=== PATIENT | female | born 1995 | race Caucasian/White ===

== ENCOUNTER → 2017-11-18 17:50 | Outpatient (CLI) | payer OTHER, SELFPAY ==
[2017-11-18 20:30] LABS: Chlamydia Trachomatis by PCR Negative (Negative); Neisserai gonorrhoeae by PCR Negative (Negative); Probe Check PASS; Sample Adequacy Control PASS; Specimen Processing Control PASS
[2017-11-24 13:08] LABS: HPV Reflexed? NOT INDICATED
== END ==
PROVIDERS: Visit Provider Nurse Practitioner Women's Health
DX: Z34.80 Encounter for supervision of other normal pregnancy, unspecified trimester (principal); Z12.4 Encounter for screening for malignant neoplasm of cervix
CPT/HCPCS: 87086; 87088; 87491; 87591; 88175; G0145

== ENCOUNTER → 2017-12-16 14:58 | Outpatient (CLI) | payer OTHER, SELFPAY ==
[2017-12-16 17:18] LABS: Absolute Lymphocyte Count 1.68 X10^3/ul (0.83-4.51); Absolute Neutrophil Count 4.4 X10^3/uL (2.0-7.7); Basophil# 0.02 X10^3/uL; Basophil% 0.3 % (0-1); Eosinophil# 0.06 X10^3/uL; Eosinophils% 0.9 % (0-5); Hematocrit 35.1 % (37-47); Lymphocyte # 1.68 X10^3/ul (4.0); Lymphocyte % 25.1 % (19-41); Mean Corp Hgb Conc 34.2 g/gl (32-36); Mean Corpuscular Hgb 29.3 pg (27.0-32.0); Mean Corpuscular Volume 85.8 fL (81-99); Mean Platelet Vol. 12.9 fl (6.2-12.0); Monocyte# 0.47 X10^3/uL; Neutrophil # 4.44 X10^3/uL (2.7-7.7); Neutrophil % 66.6 % (47-70); Platelet Count 113 K/mm3 (150-450); RBC Distribution Width CV 13.4 % (11.6-14.6); RBC Distribution Width SD 41.6 fl (35.1-43.9); Red Blood Count 4.09 M/mm3 (4.2-5.4); White Blood Count 6.7 K/mm3 (4.4-11.0)
[2017-12-16 17:29] LABS: POSITIVE COUNT NO; POSITIVE DIFFERENTIAL NO; POSITIVE MORPHOLOGY NO
[2017-12-17 03:43] LABS: Rapid Plasmin Reagin (RPR) NONREACTIVE (NONREACTIVE)
[2017-12-17 12:31] LABS: HIV - WCH Non-Reactive (Nonreactive); Rubella IgG 112.9 IU/mL
[2017-12-18 09:09] LABS: HEPATITIS B SURFACE AG Negative (Negative)
== END ==
LOC: POLAB3 14:59
PROVIDERS: Visit Provider Nurse Practitioner Women's Health
DX: Z34.80 Encounter for supervision of other normal pregnancy, unspecified trimester (principal)
CPT/HCPCS: 85025; 86592; 86703; 86762; 86850; 86900; 87340

== ENCOUNTER → 2018-03-14 12:44 | Outpatient (CLI) | payer OTHER, SELFPAY ==
[2018-02-07 14:57] VITALS: BMI 21.4
[2018-03-14 13:14] LABS: Absolute Lymphocyte Count 1.89 X10^3/ul (0.83-4.51); Absolute Neutrophil Count 5.2 X10^3/uL (2.0-7.7); Basophil# 0.01 X10^3/uL; Basophil% 0.1 % (0-1); Eosinophil# 0.03 X10^3/uL; Eosinophils% 0.4 % (0-5); Hematocrit 34.5 % (37-47); Hemoglobin 11.2 g/dl (12.0-15.0); Lymphocyte # 1.89 X10^3/ul (4.0); Lymphocyte % 24.5 % (19-41); Mean Corp Hgb Conc 32.5 g/gl (32-36); Mean Corpuscular Hgb 28.6 pg (27.0-32.0); Mean Platelet Vol. 11.3 fl (6.2-12.0); Monocyte# 0.56 X10^3/uL; Monocyte% 7.3 % (0-10); Neutrophil % 67.3 % (47-70); POSITIVE COUNT NO; POSITIVE DIFFERENTIAL NO; POSITIVE MORPHOLOGY NO; Platelet Count 127 K/mm3 (150-450); RBC Distribution Width CV 12.3 % (11.6-14.6); Red Blood Count 3.92 M/mm3 (4.2-5.4); White Blood Count 7.7 K/mm3 (4.4-11.0)
--- OUTSIDE RECORDS SUMMARY | 2018-05-07 19:22 | XMS RPT_ITS ---
:1995 Author Organization OHIP Support Name Relationship Address Phone MARCHCOLTONDE Unavailable [address] + [place] [address] UE Unavailable Unavailable Unavailable GIOVANI LAMBERTO Unavailable [address] + [place] [address] UE Unavailable Unavailable Unavailable GIOVANI LAMBERTO Unavailable [address] + [place] [address] UE Unavailable Unavailable Unavailable GIOVANI LAMBERTO Unavailable [address] + [place] [address] UE Unavailable Unavailable Unavailable GIOVANI LAMBERTO Unavailable [address] + [place] [address] U Unavailable Unavailable Unavailable MARCH LAMBERTO Unavailable [address] + [place] [address] U Unavailable Unavailable Unavailable GIOVANI LAMBERTO Unavailable [address] + [place] [address] U Unavailable Unavailable Unavailable MARCH LAMBERTO Unavailable [address] + [place] [address] U Unavailable Unavailable Unavailable LAMBERTO MARCH Unavailable [address] + [place] [address] U Unavailable Unavailable Unavailable NOT EMPLOYED Unavailable Unavailable + [place] [address] COLTON MARCHDE Unavailable [address] + [place] [address] Care Team Providers Name Role Phone Nazario Cameron MD Admitting Unavailable Nazario Cameron MD Attending Unavailable KRAIG HER Attending Unavailable SELF, SELF Referring Unavailable KRAIG EHR Attending Unavailable SELF, SELF Referring Unavailable LESLIE SOFIA Attending Unavailable KRAIG HER Attending Unavailable SELF, SELF Referring Unavailable NO PRIMARY CAREMD Primary Care Unavailable AUGUSTA WILSON Attending Unavailable MARCANTHONY, ASHLEY E Referring Unavailable Marcanthony, Ashley Attending Unavailable Marcanthony, Ashley Attending Unavailable Marcanthony, Ashley Referring Unavailable Primay Care Physicia, No Primary Care Unavailable Noel, Kaycee Attending Unavailable Noel, Kaycee Attending Unavailable [place], Kaycee Referring Unavailable [place], Kaycee Attending Unavailable Noel, Kaycee Attending Unavailable Marcanthony, Ashley Attending Unavailable Marcanthony, Ashley Attending Unavailable Marcanthony, Ashley Attending Unavailable Marcanthony, Ashley Referring Unavailable Primay Care Physicia, No Primary Care Unavailable Marcanthony, Ashley Attending Unavailable PROBLEMS PROBLEMS DATE TYPE CONDITION / CODE ATTENDING STATUS SOURCE 03/28/2018 Unknown Z34.90 - Encounter Marcanthony, Active [place] for supervision of [facility] normal , Hospital unspecified, Repository unspecified trimester / Z34.90(ICD-10) 03/28/2018 Unknown Z23 - Encounter for Marcanthony, Active [place] immunization / [facility] Z23(ICD-10) Hospital Repository 03/28/2018 Unknown O23.591 - Infection Marcanthony, Active [place] of other part of [facility] genital tract in Hospital , first Repository trimester / O23.591(ICD-10) 03/28/2018 Unknown Z34.80 - Encounter Marcanthony, Active [place] for supervision of [facility] other normal Hospital , Repository unspecified trimester / Z34.80(ICD-10) 03/28/2018 Unknown Z3A.27 - 27 weeks Marcanthony, Active [place] gestation of [facility] / Hospital Z3A.27(ICD-10) Repository 03/28/2018 Unknown O99.119 - Other Marcanthony, Active [place] diseases of the [facility] blood and Hospital blood-forming organs Repository and certain disorders involving the immune mechanism complicating , unspecified trimester / O99.119(ICD-10) 03/28/2018 Unknown O43.113 - Marcanthony, Active [place] Circumvallate [facility] placenta, third Hospital trimester / Repository O43.113(ICD-10) 03/14/2018 Unknown Z3A.25 - 25 weeks Marcanthony, Active [place] gestation of [facility] / Hospital Z3A.25(ICD-10) Repository 02/07/2018 Unknown Z3A.20 - 20 weeks Marcanthony, Active [place] gestation of [facility] / Hospital Z3A.20(ICD-10) Repository 01/14/2018 Unknown Z3A.16 - 16 weeks Jorge Alberto, Active [place] gestation of [facility] / Hospital Z3A.16(ICD-10) Repository 12/22/2017 Admitting Anesthesia of saa / SOFIALESLIE KIRKPATRICK [facility] Diagnosis R20.0(ICD-10) System ([place]) Repository 12/22/2017 Admitting state, TAINA, [facility] Diagnosis incidental / KRAIG System ([place]) Z33.1(ICD-10) Repository 12/16/2017 Unknown O23.599 - Infection Noel, Active [place] of other part of [facility] genital tract in Hospital , Repository unspecified trimester / O23.599(ICD-10) 12/16/2017 Unknown A59.01 - Trichomonal Neol, Active [place] vulvovaginitis / [facility] A59.01(ICD-10) Hospital Repository 11/19/2017 Unknown Z12.4 - Encounter Noel, Active [place] for screening for [facility] malignant neoplasm Hospital of cervix / Repository Z12.4(ICD-10) 11/18/2017 Unknown A64 - Unspecified Noel, Active [place] sexually transmitted [facility] disease / Hospital A64(ICD-10) Repository 11/18/2017 Unknown N89.8 - Other Noel, Active [place] specified [facility] noninflammatory Hospital disorders of vagina Repository / N89.8(ICD-10) PROCEDURES PROCEDURES No Procedure Records FoundRESULTS RESULTS CBC W/DIFF, AUTOMATED Collected: 03/28/2018 Status: F Source: [place] 2:44 PM [facility] REPOSITORY TYPE CODE TESTS RESULT OUT OF RANGE REFERENCE UNITS LAB L100.1000 4.4-11.0 K/mm3 Normal WBC 7.0 LAB L100.1200 4.2-5.4 M/mm3 Low RBC 3.78 LAB L100.1300 12.0-15.0 g/dl Low HGB 10.6 LAB L100.1400 37-47 % Low HCT 32.1 LAB L100.1500 81-99 fL Normal MCV 84.9 LAB L100.1600 27.0-32.0 pg Normal MCH 28.0 LAB L100.1700 32-36 g/gl Normal MCHC 33.0 LAB L100.1810 11.6-14.6 % Normal RDW CV 12.6 LAB L100.1820 35.1-43.9 fl Normal RDW SD 39.0 LAB L100.1900 150-450 K/mm3 Low PLT 115 LAB L100.2000 6.2-12.0 fl Normal MPV 11.2 LAB L100.2100 47-70 % High NEUT% 72.2 LAB L100.2200 19-41 % Normal LY% 21.3 LAB L100.2300 0-10 % Normal MONO% 6.0 LAB L100.2400 0-5 % Normal EO% 0.1 LAB L100.2500 0-1 % Normal BASO% 0.1 LAB L100.2550 0.0-0.9 % Normal IM GRAN % 0.300 Result Comment: IG% - Immature Granulocytes (promyelocytes, myelocytes and metamyelocytes) > 1% indicates that a LEFT SHIFT is Present. LAB L100.2620 2.0-7.7 X10 3/uL Normal Absolute Neut 5.0 LAB L100.2720 0.83-4.51 X10 3/ul Normal Absolute Lymph 1.48 Performed By: #### L100.0100 #### [facility] [address] [place], [address] GLUCOSE CHALLENGE GEST Collected: 03/28/2018 Status: F Source: [place] 1H 50G 2:44 PM [facility] REPOSITORY Order Comment: Comments: blood draw at 2:55 Comments: blood draw at 2:55 TYPE CODE TESTS RESULT OUT OF RANGE REFERENCE UNITS LAB L501.0250 70-140 mg/dL Normal GLU GEST 114 50g 1H Performed By: #### L501.0250 #### [facility] [address] [place], [address] MANAGER PORT OFFICE VISIT Observed: 03/28/2018 Status: F Source: [place] REPORT 2:42 PM [facility] REPOSITORY [facility] [address] [place] [address] OFFICE VISIT Date of Service: 03/28/18 MR#: [id number] Acct: [id number] Name: MOLLY MARCH Rep #: [id number] : 1995 Provider: Ashley Azul MD Age/Sex: 23/F Location: [facility] Status: Signed with Addenda ADDENDUM by Megan Cohn on 03/28/18 at 1442 OFFICE PROCEDURES Office Procedure Documentation entered by Megan Cohn 03/28/18 14:42: Immunizations Boostrix Tdap Performing Provider: Ashley Azul MD Administered by: Megan Cohn on 03/28/18 14:40 Dose Route Admin Location Lot Number Expiration Date NDC Hcc Coders 0.5 mL IM Left Arm (SQ) [id number] 02/04/20 44984-010-09 [employer] VIS Given Date VIS Publication Date 03/28/18 06/05/14 Eligibility Eligibility Date 03/28/18 1442 <Electronically signed by Megan Cohn > Date Megan Cohn cc: * Signed Intake Vital Signs03/28/18 Body Mass Index (BMI) 21.4 03/28/18 Height 5 ft 2 in 03/28/18 Weight: 118 lb 4 oz 03/28/18 Body Mass Index (BMI) 21.6 03/28/18 Blood Pressure 118/78 Intake Visit Reasons: 27 weeks Major General Required: No Is patient in pain?: No Allergies Penicillins Allergy (Intermediate, Verified 03/28/18 14:05) rash Medications docosahexanoic acid 200 mg capsule mg PO 12/16/17 [History Confirmed 03/28/18] hydroxyzine pamoate 50 mg capsule 50 mg PO TID-QID PRN #30 cap 01/20/18 [Rx Confirmed 03/28/18] Last Menstral Period: 09/19/17 Zika: Zika virus screening: Negative : No PFSH PFSH Medical History Gestational thrombocytopenia (Acute) Surgical History History of placement of ear tubes (Acute) Family History Grandfather Breast cancer Social History number of children: 1 current occupational status: unemployed Smoking Status: Never smoker alcohol intake: never substance use type: does not use caffeine: Yes Type: carbonated beverages Number of servings: 2 what type of physical activity do you participate in: none seatbelt use: always do you feel safe at home: Yes additional social history: Lamberto Step 2 Pregancy History 2 Elective abortions Hx Para Spontaneous abortions Past Pregnancies Del. DateName GA/Weeks Outcome Route Bth WeighInfant GeLabor LgtAnesthesiDel LocatProvider FOB t n h a n HPI 27 weeks: Details: MOLLY MARCH is a 23 year old who presents for routine OB visit. OB Visit SALOMÓN Calculator Estimated Delivery Date 06/26/18 Based on LMP (certain) 09/19/17 Current WG 27w 1d Number 1 Expected Delivery Route/Plan Specific Issue/Plans flu vaccine: given tdap vaccine: given rhogam: na LARC form signed: [] labor support person: Lamberto pain management: [] cut cord/dad catch: [] : [] PP control planned: [] special requests: [] Initial Weight: 106 lb Date Weight BP Urine PrFHR FuHt Pres MoCTX DilationFetal StVisit NoProviderComments E ot v te [place] G Effac lucose ed Visit Notes Visit Date: 03/28/18 no vb lof good fm no regular ctx cbc gct tdap today. Ashley Azul MD on 03/28/18 Visit Date: 03/14/18 no vb lof good fm oregualr ctx cbc drawn today Ashley Azul MD on 03/14/18 Visit Date: 02/07/18 no vb cramping Ashley Azul MD on 02/07/18 Visit Date: 01/14/18 no vb cramping. anatomy scheduled. boy on us Ashley Azul MD on 01/14/18 Visit Date: 12/16/17 Doing well. No longer with nausea. No VB, LOF. Declines genetic screen GWEN Blackman on 12/16/17 Visit Date: 11/18/[address] Azul CRL 2.3cm consistent with LMP- SALOMÓN 06/26/18 GWEN Blackman on 11/18/17 Diagnostics Diagnostics Labs Blood Type A POSITIVE 12/16/17 Antibody Screen NEGATIVE 12/16/17 Hct 34.5 % (37-47) L 03/14/18 Hgb 11.2 g/dl (12.0-15.0) L 03/14/18 Rubella IgG Antibody 112.9 IU/mL 12/16/17 RPR NONREACTIVE (NONREACTIVE) 12/16/17 Hep Bs Antigen Negative (Negative) 12/16/17 Chlam trachomat DNA PCR Negative (Negative) 11/18/17 N.gonorrhoeae DNA (PCR) Negative (Negative) 11/18/17 Details: HIV: Urine Culture: Sequential Screen: NIPT Screen: Results [email or web address] Office Urine Glucose Negative Last Edit by Megan Cohn on 03/28/18 14:03 Office Urine Protein Negative Last Edit by Megan Cohn on 03/28/18 14:03 Assessment AND Plan Problems 1. Trichomonal vaginitis during in first trimester O23.591 11/18/17-treated; 12/16/17 negative 2. Supervision of other normal , antepartum Z34.80 PRR EDC:06/26/18 boy Prabhu Araujo. Spouse-Lamberto (Rick) 3. 27 weeks gestation of Z3A.27 genetic, NTD and carrier screening declined. [facility] anatomy scan normal-placenta posterior, possibly circumvallate. 4. Benign gestational thrombocytopenia, antepartum O99.119 127. stable. monitor every 4-6 weeks 5. Circumvallate placenta in third trimester O43.113 follow up ultrasound with M 28-30 weeks Plan movement and labor precautions reviewed. ACOG trimester education reviewed and updated. see problem list details for updated plan management information and see below for orders placed at this visit. [place] appropriate handout given. Orders Orders: Medications New: Coding Level of Care Code OB Routine Diagnoses Trichomonal vaginitis during in first trimester O23.591 Trimester: first trimester Supervision of other normal , antepartum Z34.80 27 weeks gestation of Z3A.27 Weeks of gestation: 27 weeks Benign gestational thrombocytopenia, antepartum O99.119 Trimester: unspecified trimester Circumvallate placenta in third trimester O43.113 Trimester: third trimester 03/28/18 1430 <Electronically signed by Ashley Azul MD> Date Ashley Azul MD Cosigner Signature: Date (if applicable) CC: MANAGER PORT OFFICE VISIT Observed: 03/14/2018 Status: F Source: [place] REPORT 1:40 PM [facility] [address] [place] [address] OFFICE VISIT Date of Service: 03/14/18 MR#: [id number] Acct: [id number] Name: GIOVANIMOLLY L Rep #: [id number] : 1995 Provider: Ashley Azul MD Age/Sex: 23/F Location: [facility] Status: Signed Intake Vital Signs03/14/18 Body Mass Index (BMI) 21.4 03/14/18 Height 5 ft 2 in 03/14/18 Weight: 118 lb 03/14/18 Body Mass Index (BMI) 21.5 03/14/18 Blood Pressure 112/78 Intake Visit Reasons: 25 week ob Major General Required: No Is patient in pain?: No Allergies Penicillins Allergy (Intermediate, Verified 03/14/18 13:20) rash Medications docosahexanoic acid 200 mg capsule mg PO 12/16/17 [History Confirmed 03/14/18] hydroxyzine pamoate 50 mg capsule 50 mg PO TID-QID PRN #30 cap 01/20/18 [Rx Confirmed 03/14/18] Last Menstral Period: 09/19/17 Zika: Zika virus screening: Negative : No PFSH PFSH Medical History Gestational thrombocytopenia (Acute) Surgical History History of placement of ear tubes (Acute) Family History Grandfather Breast cancer Social History number of children: 1 current occupational status: unemployed Smoking Status: Never smoker alcohol intake: never substance use type: does not use caffeine: Yes Type: carbonated beverages Number of servings: 2 what type of physical activity do you participate in: none seatbelt use: always do you feel safe at home: Yes additional social history: Lamberto Step 2 Pregancy History 2 Elective abortions Hx Para Spontaneous abortions Past Pregnancies Del. DateName GA/Weeks Outcome Route Bth WeighInfant GeLabor LgtAnesthesiDel LocatProvider FOB t n h a n HPI 25 week ob: Details: MOLLY MARCH is a 23 year old who presents for routine OB visit. OB Visit SALOMÓN Calculator Estimated Delivery Date 06/26/18 Based on LMP (certain) 09/19/17 Current WG 25w 1d Number 1 Expected Delivery Route/Plan Specific Issue/Plans flu vaccine: given tdap vaccine: [] rhogam: [] LARC form signed: [] labor support person: Lamberto pain management: [] cut cord/dad catch: [] : [] PP control planned: [] special requests: [] Initial Weight: 106 lb Date Weight BP Urine PrFHR FuHt Pres MoCTX DilationFetal StVisit NoProviderComments E ot v te GA G Effac lucose ed Visit Notes Visit Date: 03/14/18 no vb lof good fm oregualr ctx cbc drawn today Ashley Azul MD on 03/14/18 Visit Date: 02/07/18 no vb cramping Ashley Azul MD on 02/07/18 Visit Date: 01/14/18 no vb cramping. anatomy scheduled. boy on us Ashley Azul MD on 01/14/18 Visit Date: 12/16/17 Doing well. No longer with nausea. No VB, LOF. Declines genetic screen GWEN Blackman on 12/16/17 Visit Date: 11/18/[address] Azul CRL 2.3cm consistent with LMP- SALOMÓN 06/26/18 GWEN Blackman on 11/18/17 Diagnostics Diagnostics Labs Blood Type A POSITIVE 12/16/17 Antibody Screen NEGATIVE 12/16/17 Hct 34.5 % (37-47) L 03/14/18 Hgb 11.2 g/dl (12.0-15.0) L 03/14/18 Rubella IgG Antibody 112.9 IU/mL 12/16/17 RPR NONREACTIVE (NONREACTIVE) 12/16/17 Hep Bs Antigen Negative (Negative) 12/16/17 Chlam trachomat DNA PCR Negative (Negative) 11/18/17 N.gonorrhoeae DNA (PCR) Negative (Negative) 11/18/17 Details: HIV: Urine Culture: Sequential Screen: NIPT Screen: Results [email or web address] Office Urine Glucose Negative Last Edit by Megan Cohn on 03/14/18 13:15 Office Urine Protein Negative Last Edit by Megan Cohn on 03/14/18 13:15 Assessment AND Plan Problems 1. Trichomonal vaginitis during in first trimester O23.591 11/18/17-treated; 12/16/17 negative 2. Supervision of other normal , antepartum Z34.80 Grav 2 EDC:06/26/18 boy Prabhu Araujo. Spouse-Lamberto (Rick) 3. 25 weeks gestation of Z3A.25 genetic, NTD and carrier screening declined. [facility] anatomy scan normal-placenta posterior, possibly circumvallate. 4. Benign gestational thrombocytopenia, antepartum O99.119 repeat cbc ordered. if still low may need heme consult Plan ACOG trimester education reviewed and updated. see problem list details for updated plan management information and see below for orders placed at this visit. [place] appropriate handout given. Orders Orders: Coding Level of Care Code OB Routine Diagnoses Trichomonal vaginitis during in first trimester O23.591 Trimester: first trimester Supervision of other normal , antepartum Z34.80 25 weeks gestation of Z3A.25 Weeks of gestation: 25 weeks Benign gestational thrombocytopenia, antepartum O99.119 Trimester: unspecified trimester 03/14/18 1340 <Electronically signed by Ashley Azul MD> Date Ashley Azul MD Cosigner Signature: Date (if applicable) CC: CBC W/DIFF, AUTOMATED Collected: 03/14/2018 Status: F Source: [place] 12:50 PM [facility] REPOSITORY TYPE CODE TESTS RESULT OUT OF RANGE REFERENCE UNITS LAB L100.1000 4.4-11.0 K/mm3 Normal WBC 7.7 LAB L100.1200 4.2-5.4 M/mm3 Low RBC 3.92 LAB L100.1300 12.0-15.0 g/dl Low HGB 11.2 LAB L100.1400 37-47 % Low HCT 34.5 LAB L100.1500 81-99 fL Normal MCV 88.0 LAB L100.1600 27.0-32.0 pg Normal MCH 28.6 LAB L100.1700 32-36 g/gl Normal MCHC 32.5 LAB L100.1810 11.6-14.6 % Normal RDW CV 12.3 LAB L100.1820 35.1-43.9 fl Normal RDW SD 39.0 LAB L100.1900 150-450 K/mm3 Low PLT 127 LAB L100.2000 6.2-12.0 fl Normal MPV 11.3 LAB L100.2100 47-70 % Normal NEUT% 67.3 LAB L100.2200 19-41 % Normal LY% 24.5 LAB L100.2300 0-10 % Normal MONO% 7.3 LAB L100.2400 0-5 % Normal EO% 0.4 LAB L100.2500 0-1 % Normal BASO% 0.1 LAB L100.2550 0.0-0.9 % Normal IM GRAN % 0.400 Result Comment: IG% - Immature Granulocytes (promyelocytes, myelocytes and metamyelocytes) > 1% indicates that a LEFT SHIFT is Present. LAB L100.2620 2.0-7.7 X10 3/uL Normal Absolute Neut 5.2 LAB L100.2720 0.83-4.51 X10 3/ul Normal Absolute Lymph 1.89 Performed By: #### L100.0100 #### [facility] [address] [place], [address] MANAGER PORT OFFICE VISIT Observed: 02/07/2018 Status: F Source: [place] REPORT 3:33 PM [facility] REPOSITORY [facility] [address] [place] [address] OFFICE VISIT Date of Service: 02/07/18 MR#: [id number] Acct: [id number] Name: MOLLY MARCH Rep #: [id number] : 1995 Provider: Ashley Azul MD Age/Sex: 23/F Location: [facility] Status: Signed with Addenda ADDENDUM by Vera Russ on 02/07/18 at 1533 OFFICE PROCEDURES Office Procedure Documentation entered by Vera Russ 02/07/18 15:33: Office Meds Flucelvax Quad [id number] (PF) Performing Provider: Ashley Azul MD Administered by: Vera Russ on 02/07/18 15:32 Dose Route Admin Location Lot Number Expiration Date NDC Hcc Coders 60 mcg IM right arm [id number] 10/09/18 53221-117-45 SEQIRUS 02/07/18 1533 <Electronically signed by Vera Russ > Date Vera Russ cc: * Signed Intake Vital Signs02/07/18 Height 5 ft 2 in 02/07/18 Weight: 117 lb 6 oz 02/07/18 Body Mass Index (BMI) 21.4 Intake Visit Reasons: 20 weeks Chief Complaint: est ob Major General Required: No Is patient in pain?: No Allergies Penicillins Allergy (Intermediate, Verified 02/07/18 15:19) rash Medications docosahexanoic acid 200 mg capsule mg PO 12/16/17 [History Confirmed 02/07/18] hydroxyzine pamoate 50 mg capsule 50 mg PO TID-QID PRN #30 cap 01/20/18 [Rx Confirmed 02/07/18] Last Menstral Period: 09/19/17 Zika: Zika virus screening: Negative : No PFSH PFSH Medical History Gestational thrombocytopenia (Acute) Surgical History History of placement of ear tubes (Acute) Family History Grandfather Breast cancer Social History number of children: 1 current occupational status: unemployed Smoking Status: Never smoker alcohol intake: never substance use type: does not use caffeine: Yes Type: carbonated beverages Number of servings: 2 what type of physical activity do you participate in: none seatbelt use: always do you feel safe at home: Yes additional social history: Lamberto Step 2 Pregancy History 2 Elective abortions Hx Para Spontaneous abortions Past Pregnancies Del. DateName GA/Weeks Outcome Route Bth WeighInfant GeLabor LgtAnesthesiDel LocatProvider FOB t n h a n HPI 20 weeks: Details: MOLLY MARCH is a 23 year old who presents for routine OB visit. OB Visit SALOMÓN Calculator Estimated Delivery Date 06/26/18 Based on LMP (certain) 09/19/17 Current WG 20w 1d Number 1 Expected Delivery Route/Plan Specific Issue/Plans flu vaccine: given tdap vaccine: [] rhogam: [] LARC form signed: [] labor support person: Lamberto pain management: [] cut cord/dad catch: [] : [] PP control planned: [] special requests: [] Initial Weight: 106 lb Date Weight BP Urine PFHR FuHt Pres MCTX DilatioFetal SVisit NProvideComment rot ov n t ote r s EGA Ef Gluco faced se 11/18/1105 lb 121/64 TV US p 8 6 oz (+ er 8w6 oz) Damian 4d hony CR L 2.3cm consis tent wi th LMP- SALOMÓN Visit Notes Visit Date: 02/07/18 no vb cramping Ashley Azul MD on 02/07/18 Visit Date: 01/14/18 no vb cramping. anatomy scheduled. boy on us Ashley Azul MD on 01/14/18 Visit Date: 12/16/17 Doing well. No longer with nausea. No VB, LOF. Declines genetic screen GWEN Blackman on 12/16/17 Visit Date: 11/18/[address] Azul CRL 2.3cm consistent with LMP- SALOMÓN 06/26/18 GWEN Blackman on 11/18/17 Diagnostics Diagnostics Labs Blood Type A POSITIVE 12/16/17 Antibody Screen NEGATIVE 12/16/17 Hct 35.1 % (37-47) L 12/16/17 Hgb 12.0 g/dl (12.0-15.0) 12/16/17 Rubella IgG Antibody 112.9 IU/mL 12/16/17 RPR NONREACTIVE (NONREACTIVE) 12/16/17 Hep Bs Antigen Negative (Negative) 12/16/17 Chlam trachomat DNA PCR Negative (Negative) 11/18/17 N.gonorrhoeae DNA (PCR) Negative (Negative) 11/18/17 Details: HIV: Urine Culture: Sequential Screen: NIPT Screen: Results [id number] Office Urine Glucose Negative Last Edit by Vera Russ on 02/07/18 15:00 Office Urine Protein Negative Last Edit by Vera Russ on 02/07/18 15:00 Assessment AND Plan Problems 1. 20 weeks gestation of Z3A.20 genetic, NTD and carrier screening declined. [facility] anatomy scan normal-placenta posterior, possibly circumvallate. 2. Benign gestational thrombocytopenia, antepartum O99.119 repeat cbc ordered. if still low may need heme consult 3. Trichomonal vaginitis during in first trimester O23.591 11/18/17-treated; 12/16/17 negative 4. Supervision of other normal , antepartum Z34.80 Grav 05/13 EDC:06/26/18 boy PC Gayle. Spouse-Lamberto (Rick) Plan ACOG trimester education reviewed and updated. see problem list details for updated plan management information and see below for orders placed at this visit. [place] appropriate handout given. Orders Orders: Coding Level of Care Code OB Routine Diagnoses 20 weeks gestation of Z3A.20 Weeks of gestation: 20 weeks Benign gestational thrombocytopenia, antepartum O99.119 Trimester: unspecified trimester Trichomonal vaginitis during in first trimester O23.591 Trimester: first trimester Supervision of other normal , antepartum Z34.80 02/07/18 1524 <Electronically signed by Ashley Azul MD> Date Ashley Azul MD Cosigner Signature: Date (if applicable) CC: MANAGER PORT OFFICE VISIT Observed: 01/14/2018 Status: F Source: [place] REPORT 3:54 PM [facility] [address] [place] [address] OFFICE VISIT Date of Service: 01/14/18 MR#: [id number] Acct: [id number] Name: MOLLY MARCH Rep #: [id number] : 1995 Provider: Ashley Azul MD Age/Sex: 22/F Location: [facility] Status: Signed Intake Vital Signs01/14/18 Height 5 ft 2 in 01/14/18 Weight: 115 lb 2 oz 01/14/18 Body Mass Index (BMI) 21.0 01/14/18 Blood Pressure 102/58 L Intake Visit Reasons: est ob 16w4d Chief Complaint: est ob Major General Required: No Is patient in pain?: No Allergies No Known Allergies Allergy (Verified 01/14/18 15:20) Medications docosahexanoic acid 200 mg capsule mg PO 12/16/17 [History Confirmed 01/14/18] Last Menstral Period: 09/19/17 Zika: Zika virus screening: Negative : No PFSH PFSH Medical History Gestational thrombocytopenia (Acute) Surgical History History of placement of ear tubes (Acute) Family History Grandfather Breast cancer Social History number of children: 1 current occupational status: unemployed Smoking Status: Never smoker alcohol intake: never substance use type: does not use caffeine: Yes Type: carbonated beverages Number of servings: 2 what type of physical activity do you participate in: none seatbelt use: always do you feel safe at home: Yes additional social history: Lamberto Step 2 Pregancy History 2 Elective abortions Hx Para Spontaneous abortions Past Pregnancies Del. DateName GA/Weeks Outcome Route Bth WeighInfant GeLabor LgtAnesthesiDel LocatProvider FOB t n h a n HPI est ob 16w4d : Details: MOLLY MARCH is a 22 year old who presents for routine OB visit. OB Visit SALOMÓN Calculator Estimated Delivery Date 06/26/18 Based on LMP (certain) 09/19/17 Current WG 16w 5d Number 1 Expected Delivery Route/Plan Specific Issue/Plans flu vaccine: [] tdap vaccine: [] rhogam: [] LARC form signed: [] labor support person: Lamberto pain management: [] cut cord/dad catch: [] : [] PP control planned: [] special requests: [] Initial Weight: 106 lb Date Weight BP Urine PrFHR FuHt Pres MoCTX DilationFetal StVisit NoProviderComments E ot v te [place] G Effac lucose ed Visit Notes Visit Date: 01/14/18 no vb cramping. anatomy scheduled. boy on us Ashley Azul MD on 01/14/18 Visit Date: 12/16/17 Doing well. No longer with nausea. No VB, LOF. Declines genetic screen GWEN Blackman on 12/16/17 Visit Date: 11/18/[address] Azul CRL 2.3cm consistent with LMP- SALOMÓN 06/26/18 GWEN Blackman on 11/18/17 Diagnostics Diagnostics Labs Blood Type A POSITIVE 12/16/17 Antibody Screen NEGATIVE 12/16/17 Hct 35.1 % (37-47) L 12/16/17 Hgb 12.0 g/dl (12.0-15.0) 12/16/17 Rubella IgG Antibody 112.9 IU/mL 12/16/17 RPR NONREACTIVE (NONREACTIVE) 12/16/17 Hep Bs Antigen Negative (Negative) 12/16/17 Chlam trachomat DNA PCR Negative (Negative) 11/18/17 N.gonorrhoeae DNA (PCR) Negative (Negative) 11/18/17 Details: HIV: Urine Culture: Sequential Screen: NIPT Screen: Results [id number] Office Urine Glucose Negative Last Edit by Vera Russ on 01/14/18 15:24 Office Urine Protein Negative Last Edit by Vera Russ on 01/14/18 15:24 Assessment AND Plan Problems 1. Trichomonal vaginitis during in first trimester O23.591 11/18/17-treated; 12/16/17 negative 2. Benign gestational thrombocytopenia, antepartum O99.119 repeat cbc ordered. if still low may need heme consult 3. Supervision of other normal , antepartum Z34.80 Grav 05/13 EDC:06/26/18 SHABBIR Araujo. Spouse-Lamberto 4. 16 weeks gestation of Z3A.16 genetic, NTD and carrier screening declined. anatomy scan ordered. Plan ACOG trimester education reviewed and updated. see problem list details for updated plan management information and see below for orders placed at this visit. GA appropriate handout given. Orders Orders: Coding Level of Care Code OB Routine Diagnoses Trichomonal vaginitis during in first trimester O23.591 Trimester: first trimester Benign gestational thrombocytopenia, antepartum O99.119 Trimester: unspecified trimester Supervision of other normal , antepartum Z34.80 16 weeks gestation of Z3A.16 Weeks of gestation: 16 weeks 01/14/18 1554 <Electronically signed by Ashley Azul MD> Date Ashley Azul MD Cosigner Signature: Date (if applicable) CC: Observed: 12/22/2017 Status: F Source: [facility] URINE CULTURE 7:43 PM SYSTEM ([place]) REPOSITORY SPECIMEN DESCRIPTION URINE CLEAN CATCH UA DIPSTICK LEUKOCYTE POSITIVE * Result Note: NITRITE NEGATIVE * CULTURE NO PATHOGENS ISOLATED * Result Note: Testing performed at [place], [place] [address] * REPORT STATUS 12/24/2017 * Result Note: FINAL * Performed By: #### AURNC #### Testing performed at [address] [address] RAPID TOX SCREEN,URINE Collected: 12/22/2017 Status: F Source: [facility] [employer] 4:35 PM SYSTEM ([place]) REPOSITORY TYPE CODE TESTS RESULT OUT OF REFERENCE UNITS RANGE LAB THCMT NEGATIVE NG/ML CANNABINOIDS NEGATIVE Result Comment: <50 ng/ml [facility]OFF LAB PCPMT NEGATIVE NG/ML PHENCYCLIDINE NEGATIVE Result Comment: <25 ng/ml [facility] LAB COCMT NEGATIVE NG/ML COCAINE NEGATIVE Result Comment: <150 ng/ml [facility] LAB MAMPMT NEGATIVE NG/ML METHAMPHETAMINE NEGATIVE Result Comment: <500 ng/ml [facility] LAB OPIMT NEGATIVE NG/ML OPIATES NEGATIVE Result Comment: <100 ng/ml [facility] LAB AMPMT NEGATIVE NG/ML AMPHETAMINE NEGATIVE Result Comment: <500 ng/ml [facility] LAB BZOMT NEGATIVE NG/ML BENZODIAZEPINES NEGATIVE Result Comment: <150 ng/ml [facility] LAB TCAMT NEGATIVE NG/ML TRICYCLIC ANTIDEPRESSANTS NEGATIVE Result Comment: <300 ng/ml [facility] MTDMT NEGATIVE NG/ML METHADONE NEGATIVE Result Comment: <200 ng/ml [facility] LAB BARMT NEGATIVE NG/ML BARBITURATES NEGATIVE Result Comment: <200 ng/ml [facility] LAB OXYMT NEGATIVE NG/ML OXYCODONE NEGATIVE Result Comment: <100 ng/ml [facility] LAB PPXMT NEGATIVE NG/ML PROPOXYPHENE NEGATIVE Result Comment: <300 ng/ml [facility] LAB BUPMT NEGATIVE NG/ML BUPRENORPHINE NEGATIVE Result Comment: <10 ng/ml CUTOFF Performed By: #### RTOX #### Testing performed at [facility] [address] [place] [address] CBC Collected: 12/22/2017 Status: F Source: [employer] 4:34 PM [place] ([place] REPOSITORY TYPE CODE TESTS RESULT OUT OF REFERENCE UNITS RANGE LAB WBC 3.6-11.0 /cmm WBC COUNT 7.1 LAB RBC 4.0-5.4 /cmm RBC COUNT 4.51 LAB HGB 12.0-16.0 G/DL HEMOGLOBIN 13.3 LAB HCT 36.0-48.0 % HEMATOCRIT 38.8 LAB MCV 80.0-100.0 FL MCV 86.0 LAB MCH 26.0-35.0 PG MCH 29.6 LAB MCHC 27.0-37.0 G/DL MCHC 34.4 LAB RDW 11.5-14.5 % RDW 14.0 LAB PLTC 130.0-400.0 /cmm Low PLATELET COUNT 115 LAB MPV 7.4-11.0 FL MPV 10.3 LAB DTYPE % DTYPE AUTO DIFF LAB NEUT 37.0-75.0 % NEUTROPHIL 68.5 LAB LYMP 20.0-55.0 % LYMPHOCYTE 22.7 LAB AOMONO 0.0-10.0 % MONOCYTE 7.9 LAB EOS 0.0-11.0 % EOSINOPHIL 0.6 LAB BASO 0.0-2.0 % BASOPHIL 0.3 LAB ANC 1.0-7.0 x10 ABSOLUTE NEUTROPHIL COUNT 4.9 LAB ALYM X10 ABSOLUTE LYMPHOCYTE 1.60 LAB AMONO X10 ABSOLUTE MONOCYTE 0.6 LAB AEO X10 ABSOLUTE EOS 0.00 LAB ABAS X10 ABSOLUTE BAS 0.0 Performed By: #### TSH2, ACBC, MG, CMPF #### Testing performed at [facility] [address] [place] [address] [facility] FASTING Collected: 12/22/2017 Status: F Source: [facility] 4:34 PM SYSTEM ([place]) REPOSITORY TYPE CODE TESTS RESULT OUT OF REFERENCE UNITS RANGE LAB GLF 70-100 MG/DL GLUCOSE 80 FASTING Result Comment: NORMAL <100 mg/dL PREDIABETES 101-126 mg/dL DIABETES 126 mg/dL or higher LAB BUN 7-20 MG/DL BLOOD UREA 6 Low NITROGEN LAB CRET 0.52-1.04 MG/DL CREATININE SERUM 0.6 LAB NA 136-145 MMOL/L SODIUM 136 LAB K 3.5-5.1 MMOL/L POTASSIUM Low 3.3 LAB CL 98-107 MMOL/L CHLORIDE 103 LAB CA 8.4-10.2 MG/DL CALCIUM 9.0 LAB TP 6.3-8.2 GM/DL TOTAL PROTEIN 7.7 LAB ALB 3.5-5.0 G/dl ALBUMIN 4.1 LAB TBIL 0.2-1.2 MG/DL BILIRUBIN TOTAL 0.7 LAB AST 15-41 IU/L AST 18 LAB ALKP 38-126 IU/L ALK 47 PHOSPHATASE LAB CO2 22-30 MMOL/L CO2 25 LAB AG 1.3-2.2 RATIO A:G RATIO Low 1.1 LAB ALT 14-54 IU/L ALT 9 Low LAB GFR ml/min/1.73 sq.m EST. GFR,Non >60 LAB GFRB ml/min/1.73 sq.m EST. GFR, >60 [place] LAB GFRCOM GFR Information Average GFR for 20-29 years old = 116. Result Comment: Chronic Kidney disease, GFR = <60. Kidney failure, GFR = <15. The GFR estimate is not adjusted for extreme body surface area or acute process, nor has it been validated for women or ethnic groups other than and . Performed By: #### TSH2, ACBC, MG, CMPF #### Testing performed at [address] [address] MAGNESIUM Collected: 12/22/2017 Status: F Source: [facility] 4:34 PM [place] ([place] REPOSITORY TYPE CODE TESTS RESULT OUT OF REFERENCE UNITS RANGE LAB MG 1.6-2.3 MG/DL MAGNESIUM 1.9 Performed By: #### TSH2, ACBC, MG, CMPF #### Testing performed at [address] [address] TSH Collected: 12/22/2017 Status: F Source: [facility] 4:34 PM [place] REPOSITORY TYPE CODE TESTS RESULT OUT OF RANGE REFERENCE UNITS LAB TSH2 0.45-5.33 uIU/ML TSH 1.190 Performed By: #### TSH2, ACBC, MG, CMPF #### Testing performed at [address] [address] CBC W/DIFF, AUTOMATED Collected: 12/16/2017 Status: F Source: [place] 2:59 PM [facility] REPOSITORY TYPE CODE TESTS RESULT OUT OF RANGE REFERENCE UNITS LAB L100.1000 4.4-11.0 K/mm3 Normal WBC 6.7 LAB L100.1200 4.2-5.4 M/mm3 Low RBC 4.09 LAB L100.1300 12.0-15.0 g/dl Normal HGB 12.0 LAB L100.1400 37-47 % Low HCT 35.1 LAB L100.1500 81-99 fL Normal MCV 85.8 LAB L100.1600 27.0-32.0 pg Normal MCH 29.3 LAB L100.1700 32-36 g/gl Normal MCHC 34.2 LAB L100.1810 11.6-14.6 % Normal RDW CV 13.4 LAB L100.1820 35.1-43.9 fl Normal RDW SD 41.6 LAB L100.1900 150-450 K/mm3 Low PLT 113 LAB L100.2000 6.2-12.0 fl High MPV 12.9 LAB L100.2100 47-70 % Normal NEUT% 66.6 LAB L100.2200 19-41 % Normal LY% 25.1 LAB L100.2300 0-10 % Normal MONO% 7.0 LAB L100.2400 0-5 % Normal EO% 0.9 LAB L100.2500 0-1 % Normal BASO% 0.3 LAB L100.2550 0.0-0.9 % Normal IM GRAN % 0.100 Result Comment: IG% - Immature Granulocytes (promyelocytes, myelocytes and metamyelocytes) > 1% indicates that a LEFT SHIFT is Present. LAB L100.2620 2.0-7.7 X10 3/uL Normal Absolute Neut 4.4 LAB L100.2720 0.83-4.51 X10 3/ul Normal Absolute Lymph 1.68 Performed By: #### L100.0100 #### [facility] [address] [place] [address], [id number] TYPE AND SCREEN Collected: 12/16/2017 Status: F Source: [place] 2:59 PM [facility] REPOSITORY Order Comment: Reason for Type AND Screen/Red Cells: TYPE CODE TESTS RESULT OUT OF RANGE REFERENCE UNITS LAB B10.0800 A Normal BLOOD TYPE GEL POSITIVE LAB B100.4000 Normal Antibody NEGATIVE Screen Performed By: #### B101.7450 #### [facility] [address] [place] [address], [id number] #### L3100.0390 #### [facility] (refer to report for specific site) refer to report for address and phone number HEPATITIS B SURFACE Collected: 12/16/2017 Status: F Source: [facility] 2:59 PM [facility] REPOSITORY TYPE CODE TESTS RESULT OUT OF RANGE REFERENCE UNITS LAB L3100.0400 Negative Normal HB Negative SURF AG Result Comment: Performed at: - [facility] [id number] Teller Coordinator: Prabhu Black PhD, Phone: [phone] Performed By: #### B101.7450 #### [facility] [address] [place], [place], [id number] #### L3100.0390 #### [facility] (refer to report for specific site) refer to report for address and phone number RAPID PLASMIN REAGIN Collected: 12/16/2017 Status: F Source: [place] (RPR) 2:59 PM [facility] REPOSITORY TYPE CODE TESTS RESULT OUT OF REFERENCE UNITS RANGE LAB L700.5000 NONREACTIVE NONREACTIVE Normal RPR Performed By: #### L700.5000, L509.4000, L3890.6005 #### [facility] [place], [place], [id number] RUBELLA IGG Collected: 12/16/2017 Status: F Source: [place] 2:59 PM [facility] REPOSITORY TYPE CODE TESTS RESULT OUT OF RANGE REFERENCE UNITS LAB L509.4000 IU/mL Normal Rubella IgG 112.9 Result Comment: Antibody results Interpretation of Immune Status < 5 IU/ml Presumed Non-immune 5 - < 10 IU/ml Equivocal > or = 10 IU/ml Presumed Immune Performed By: #### L700.5000, L509.4000, L3890.6005 #### [facility] [place], [place], [id number] HIV - [facility] Collected: 12/16/2017 Status: F Source: [place] 2:59 PM [facility] REPOSITORY TYPE CODE TESTS RESULT OUT OF RANGE REFERENCE UNITS LAB L3890.6005 Nonreactive Normal HIV - [facility] Non-Reactive Performed By: #### L700.5000, L509.4000, L3890.6005 #### [facility] [address] [place], [place], [id number] MANAGER PORT OFFICE VISIT Observed: 12/16/2017 Status: F Source: [place] REPORT 2:58 PM [facility] REPOSITORY [facility] [address] [place] [address] OFFICE VISIT Date of Service: 12/16/17 MR#: [id number] Acct: [id number] Name: MOLLY MARCH Rep #: [id number] : 1995 Provider: MEGAN Cohen Age/Sex: 22/F Location: [facility] Status: Signed Intake Vital Signs12/16/17 Height 5 ft 2 in 12/16/17 Weight: 109 lb 4 oz 12/16/17 Body Mass Index (BMI) 20.0 12/16/17 Blood Pressure 107/41 Intake Visit Reasons: est ob 12w4d Major General Required: No Is patient in pain?: No Allergies No Known Allergies Allergy (Verified 12/16/17 14:39) Medications docosahexanoic acid 200 mg capsule mg PO 12/16/17 [History Confirmed 12/16/17] Last Menstral Period: 09/19/17 Zika: Zika virus screening: Negative : No PFSH PFSH Medical History Gestational thrombocytopenia (Acute) Surgical History History of placement of ear tubes (Acute) Family History Grandfather Breast cancer Social History number of children: 1 current occupational status: unemployed Smoking Status: Never smoker alcohol intake: never substance use type: does not use caffeine: Yes Type: carbonated beverages Number of servings: 2 what type of physical activity do you participate in: none seatbelt use: always do you feel safe at home: Yes additional social history: Lamberto Step 2 Pregancy History 2 Elective abortions Hx Para Spontaneous abortions Past Pregnancies Del. DateName GA/Weeks Outcome Route Bth WeighInfant GeLabor LgtAnesthesiDel LocatProvider FOB t n h a n HPI est ob 12w4d: Details: MOLLY MARCH is a 22 year old who presents for routine OB visit. OB Visit SALOMÓN Calculator Estimated Delivery Date 06/26/18 Based on LMP (certain) 09/19/17 Current WG 12w 4d Number 1 Expected Delivery Route/Plan Specific Issue/Plans flu vaccine: [] tdap vaccine: [] rhogam: [] LARC form signed: [] labor support person: Lamberto pain management: [] cut cord/dad catch: [] : [] PP control planned: [] special requests: [] Initial Weight: Not Recorded Date Weight BP Urine PrFHR FuHt Pres MoCTX DilationFetal StVisit NoProviderComments E ot v te [place] G Effac lucose ed Visit Notes Visit Date: 12/16/17 Doing well. No longer with nausea. No VB, LOF. Declines genetic screen GWEN Blackman on 12/16/17 Visit Date: 11/18/[address] Azul CRL 2.3cm consistent with LMP- SALOMÓN 06/26/18 GWEN Blackman on 11/18/17 Diagnostics Diagnostics Labs Chlam trachomat DNA PCR Negative (Negative) 11/18/17 N.gonorrhoeae DNA (PCR) Negative (Negative) 11/18/17 Details: HIV: Urine Culture: Sequential Screen: NIPT Screen: Results [id number] Office Urine Glucose Negative Last Edit by Mirela Martinez on 12/16/17 14:46 Office Urine Protein Negative Last Edit by Mirela Martinez on 12/16/17 14:46 Assessment AND Plan Problems 1. Supervision of other normal , antepartum Z34.80 Grav 05/13 EDC:06/26/18 PC Gayle. Spouse-Lamberto 2. Benign gestational thrombocytopenia, antepartum O99.119 3. Trichomonal vaginitis during in first trimester O23.591; A59.01 11/18/17-treated;MITRA in 4 weeks 4. screening encounter Z36.9 declines genetic screen Plan Orders placed: test of cure for trichimoniasis. Get labs today Reviewed of precautions to report to office ACOG trimester education reviewed and updated See problem list details for updated plan of care Gestational age appropriate handout given RTO: 4 weeks Orders Orders: Medications Discontinued: metronidazole Discontinued Reason:500 mg PO 2 tab now and repeat in 12 Mirela Martinez Order Completed hours Coding Level of Care Code OB Routine Diagnoses Supervision of other normal , antepartum Z34.80 Benign gestational thrombocytopenia, antepartum O99.119 Trimester: unspecified trimester Trichomonal vaginitis during in first trimester O23.591; A59.01 Trimester: first trimester screening encounter Z36.9 12/16/17 1458 <Electronically signed by Kaycee HIDALGO> Date Kaycee LUCIOC Cosigner Signature: Date (if applicable) CC: CT/NG [facility] BY PCR Collected: 11/18/2017 Status: F Source: [place] 5:51 PM [facility] REPOSITORY Order Comment: CYTOLOGY INFORMATION: - CLINICAL INFORMATION: - DATE LMP/MENOPAUSE: LMP ANNUAL - COLLECTION VIAL: Thin Prep Vial - DIRECTOR SECURITY MANAGEMENT SOURCE: CERVICAL - COLLECTION TECHNIQUE: BRUSH/SPATULA TYPE CODE TESTS RESULT OUT OF RANGE REFERENCE UNITS LAB L8200.2100 Negative Normal Chlam Negative Trac PCR LAB L8200.2200 Negative Normal NG by Negative PCR Performed By: #### L8200.2000 #### [facility] [address] [place], [place], [address] #### L7400.0353 #### [facility] (refer to report for specific site) refer to report for address and phone number PAP I-G W/RFX Collected: 11/18/2017 Status: F Source: [place] HRHPV-APTIMA 5:51 PM [facility] REPOSITORY Order Comment: Specimen Comment: No. of containers..01 ThinPrep Vial TYPE CODE TESTS RESULT OUT OF RANGE REFERENCE UNITS LAB L7400.0800 . Normal DIAGN Comment Result Comment: NEGATIVE FOR INTRAEPITHELIAL LESION AND MALIGNANCY. TRICHOMONAS VAGINALIS IS PRESENT. CELLULAR CHANGES ASSOCIATED WITH INFLAMMATION ARE PRESENT. LAB L7400.0900 . Normal ADEQ Comment Result Comment: Satisfactory for evaluation. Endocervical and/or squamous metaplastic cells (endocervical component) are present. Areas of partially obscuring inflammtory exudate are present. LAB L7400.1400 . Normal PERFORM Comment Result Comment: Mely Starkey Booth Cleaner (ASCP) LAB L7400.2575 . Normal TEST METHOD Comment Result Comment: This liquid based ThinPrep(R) pap test was screened with the use of an image guided system. LAB L7400.2600 . Normal . COMM LAB L7400.2700 . Normal PAPSMR Comment Result Comment: The Pap smear is a screening test designed to aid in the detection of premalignant and malignant conditions of the uterine cervix. It is not a diagnostic procedure and should not be used as the sole means of detecting cervical cancer. Both false-positive and false-negative reports do occur. LAB L7400.2800 . Normal HPV RFLX Comment Result Comment: The HPV DNA reflex criteria were not met with this specimen result therefore, no HPV testing was performed. Performed at: [address] [id number] Teller Coordinator: Elizabeth Marcus MD, Phone: [phone] Performed By: #### L8200.2000 #### [facility] [address] [place] [address]. [place], [address] #### L7400.0353 #### [facility] (refer to report for specific site) refer to report for address and phone number Observed: 11/18/2017 Status: F Source: [place] CULTURE, URINE 5:51 PM [facility] REPOSITORY Urine Culture Below infection level. ORGANISM 1: Mixed Gram Positive Organisms Quimby Count <1000 Performed By: #### M100.0650 #### [facility] [address] [place] [address]. [place], [address] MANAGER PORT OFFICE VISIT Observed: 11/18/2017 Status: F Source: [place] REPORT 5:01 PM [facility] REPOSITORY [facility] [address] [place] [address]. [address] [place] [address] OFFICE VISIT Date of Service: 11/18/17 MR#: [id number] Acct: [id number] Name: MOLLY MARCH Rep #: [id number] : 1995 Provider: MEGAN Cohen Age/Sex: 22/F Location: [facility] Status: Signed Intake Vital Signs11/18/17 Height 5 ft 2 in 11/18/17 Weight: 106 lb 6 oz 11/18/17 Body Mass Index (BMI) 19.4 11/18/17 Blood Pressure 121/64 Intake Visit Reasons: NOB - LMP 09/19 Major General Required: No Accompanied by: Allergies No Known Allergies Allergy (Verified 11/18/17 14:38) Medications NK [NK] 11/18/17 [History Confirmed 11/18/17] metronidazole 500 mg tablet 500 mg PO .COMPLEX #4 tab 11/18/17 [Rx Confirmed 11/18/17] promethazine 12.5 mg tablet 12.5 mg PO Q6H PRN #60 tab 11/18/17 [Rx Confirmed 11/18/17] Last Menstral Period: 09/19/17 Zika: Zika virus screening: Negative PFSH PFSH Medical History Gestational thrombocytopenia (Acute) Surgical History History of placement of ear tubes (Acute) Family History Grandfather Breast cancer Social History number of children: 1 current occupational status: unemployed Smoking Status: Never smoker alcohol intake: never substance use type: does not use caffeine: Yes Type: carbonated beverages Number of servings: 2 what type of physical activity do you participate in: none seatbelt use: always do you feel safe at home: Yes additional social history: Lamberto Step 2 Pregancy History 2 Elective abortions Hx Para Spontaneous abortions Past Pregnancies Del. DateName GA/Weeks Outcome Route Bth WeighInfant GeLabor LgtAnesthesiDel LocatProvider FOB t n h a n HPI NOB - LMP 09/19: Details: MOLLY MARCH is a 22 year old who presents for New OB visit. 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 Azul CRL 2.3cm consistent with LMP- SALOMÓN 06/26/18 KHADIJAH BlackmanC on 11/18/17 Menstrual History Last Menstral Period: 09/19/17 Reported LMP: definite Normal amount/duration: Yes On hormonal BC at conception: No hCG+: 10/22/17 Antepartum Record Genetic Screening: Congenital Heart Defect: Other, Neural Tube Defect: Other, Hemoglobinopathy Or Carrier: Other, Cystic Fibrosis: Other, Chromosome Abnormality: Other, Michel-Sachs: Other, Hemophilia: Other, Intellectual Disability/Autism: Other, Recurrent Loss/Stillbirth: Other, Other Structural Defect: Other, Other Genetic Disease: Other, Maternal Metabolic Disorder: Other Infection History: Live with someone with TB or Exposed to TB: No, Patient or Partner has history of Genital Herpes: No, Rash or Viral illness since last mentrual period: No, Prior GBS-Infected child: No, HIV Infection: No, History of Hepatitis: No, Recent travel outside of [place]: No, Concern for Hep exposure: No, Varicella immune: Yes (chicken pox as child) Medical History Medical History: Positive: Psychiatric (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), Depression/ depression, Operations/hospitalizations (vaginal delivery, tubes in ears), Negative: Diabetes, Hypertension, Heart disease, Auto- immune disorder, Kidney disease/UTI, Neurologic/epilepsy, Hepatitis/liver disease, Varicosities/phlebitis, Thyroid dysfunction, Trauma/domestic violence, History of blood transfusions, D (Rh) Sensitized, Pulmonary (e.g.,TB,Asthma), Seasonal allergies, Drug/latex allergies/reactions, Breast, [employer] surgery, Anesthetic complications, History of abnormal pap, Uterine anomaly/chelita, Infertility, Anti-retroviral treatment, Relevant family history, Other ROS Const Reports as per HPI Card Denies chest pain, Denies shortness of breath Resp Denies shortness of breath GI Denies change in stools Denies difficulty urinating, Denies abnormal vaginal bleeding, Denies vaginal odor, Denies vaginal itching, Denies vaginal discharge Exam Const General: cooperative, healthy appearing, well developed Nutritional Appearance: average body habitus, well nourished Orientation: oriented x3 Neck Neck: normal visual inspection Neck mass: No Thyroid: thyroid normal Chest Chest palpation AND inspection: normal inspection of the chest Breast inspection: normal inspection of the breasts, normal inspection of the axillae Resp Effort AND Inspection: normal respiratory effort GI Inspection: normal to inspection Palpation: soft, nontender, no masses External Female Exam: normal external appearance, normal appearance of the urethra Urethra: normal appearance of the urethra Speculum Exam - Vagina: abnormal vaginal discharge frothy and yellow, vaginal erythema Speculum Exam - Cervix: closed cervix, other (thin prep pap with reflex HPV, GCC collected), abnormal cervical discharge (strawberry cervix, slightly friable) Bimanual Exam- Vagina AND Uterus: normal bimanual exam, uterine shape normal, uterine size normal (10 weeks), other (pap, GCC, trich and BV collected) Bimanual Exam- Adnexa, other: normal adnexae, no adnexal masses, adnexae non-tender Skin General: no rashes or lesions noted, turgor normal Assessment AND Plan Problems 1. Supervision of other normal , antepartum Z34.80 Grav 2 EDC:06/26/18 SHABBIR Araujo. Spouse-Lamberto 2. Benign gestational thrombocytopenia, antepartum O99.119; D69.6 3. 8 weeks gestation of Z3A.08 Orders Orders: Medications New: Results POCTRICVAG Office Trichomonas vaginalis Positive Last Edit by Megan Cohn on 11/18/17 16:00 POCBVBLUE Office BVBlue Test Negative Last Edit by Megan Cohn on 11/18/17 16:00 Coding Level of Care Code Off vis,new,level 4 Diagnoses Supervision of other normal , antepartum Z34.80 Benign gestational thrombocytopenia, antepartum O99.119; D69.6 Trimester: unspecified trimester 8 weeks gestation of Z3A.08 Weeks of gestation: 8 weeks 11/18/17 1701 <Electronically signed by Kaycee HIDALGO> Date Kaycee Noel GRADING MACHINE FEEDER-C Cosigner Signature: Date (if applicable) CC: HEPATITIS B SURFACE Collected: 10/19/2017 Status: F Source: [facility] ABS 2:09 PM [facility] REPOSITORY TYPE CODE TESTS RESULT OUT OF REFERENCE UNITS RANGE LAB HBSABQTS mIU/mL Normal Hepatitis B < 5.0 Surf Ab, Qt Result Comment: REFERENCE VALUE Unvaccinated: <5.0 Vaccinated: >=12.0 Test Performed by: [facility] [address] [place] [address] LAB HBSABS Normal Hepatitis B Negative Surface Abs Result Comment: Patient is presumed to be not immune to infection with HBV. REFERENCE VALUE Unvaccinated: Negative Vaccinated: Positive Performed By: #### HBSABS #### Unless otherwise noted, all testing performed by [place] [id number] CLIA: [id number] Production Support Manager: Darius Dao M.D. ALLERGIES ALLERGIES DATE TYPE / CODE NAME / CODE REACTION SEVERITY SOURCE 03/28/2018 Drug Penicillins/F Rash MO [facility] Allergy/4160 989398628(RXN Hospital 78120(SNOMED ORM) Repository CT) 01/14/2018 Drug No Known Unknown [facility] Allergy/4160 Allergies/F00 Hospital 27022(SNOMED 4743061(RXNOR Repository CT) M) ENCOUNTERS ENCOUNTERS ADMIT/DISCHARGE ACCOUNT NUMBER ADMITTING ENCOUNTER LOCATION SOURCE CLASS 03/28/2018 [id number] Ambulatory [facility] ding:PAVLAB Repository 03/28/2018/03/28/20 [id number] Ambulatory BMSBuilding: Heather 18 BMS.[facility] Repository 03/14/2018/03/14/20 [id number] Ambulatory BMSBuilding: [place] 18 BMS.[facility] Repository 03/14/2018 [id number] Ambulatory [facility] ding:LAB Repository 02/07/2018/02/08/20 [id number] Ambulatory BMSBuilding: [place] 18 BMS.[facility] Repository 01/27/2018 [id number] Ambulatory Building[facility] Repository 01/18/2018 [id number] Ambulatory [facility] [place] 01/14/2018/01/15/20 [id number] Ambulatory BMSBuilding: [place] 18 BMS.[facility] Repository 12/22/2017/12/23/19 [id number] Emergency [facility]in[address] [place] [address] DRoom: System ([place]) S416Kjc: Repository E017 12/22/2017 [id number] Ambulatory Buildin [facility] [place] [facility] ([place] Repository 12/22/2017 [id number] Ambulatory [facility] [place] [address] System ([place]) Repository 12/16/2017 [id number] Ambulatory [facility] ding:POLAB3 Repository 12/16/2017/12/17/19 [id number] Ambulatory BMSBuilding: [place] 18 BMS.[facility] Repository 11/18/2017 [id number] Ambulatory [facility] ding:LABSPEC Repository 11/18/2017/11/19/19 [id number] Ambulatory BMSBuilding: [place] 18 BMS.[facility] Repository 10/19/2017 [id number] Rakesh RODRIGUES, Ambulatory [facility] Repository PAYERS PAYERS ENCOUNTER GUARANTOR PAYER SUBSCRIBER SOURCE 03/28/2018 MOLLY Ash Primary Insurance:IVON Orantes [place] [id number] JOANN [id number] GiovaniDOB: [facility] MARIE ARGUELLES, Number: [id number] [facility] [address]Lcp: [id number] Repository Date:7952-92-75ZV BOX () [address] [place] [phone]: 03/28/2018 Secondary NOT GIVENUNK [place] Insurance:SELF PAY [facility] Number: Effective Repository Date:2018-03-28 03/28/2018 MOLLY L Primary Insurance:UMR Lamberto Heather [id number] JOANN [id number] ThompsonDOB: [facility] MARIE ARGUELLES, Number: [id number] [facility] [address]Oti: [id number] Repository Date:0410-47-67EZ BOX () [address] [place] [phone]: 03/28/2018 Secondary NOT GIVENUNK [place] Insurance:SELF PAY [facility] Number: Effective Repository Date:2018-03-28 03/14/2018 MOLLY L Primary Insurance:UMR Lamberto [place] [id number] JOANN [id number] ThompsonDOB: [facility] MARIE ARGUELLES, Number: [id number] [facility] [address]Jfu: [id number] Repository Date:5175-94-63JD BOX () [address] [place] [phone]: 03/14/2018 Secondary NOT GIVENUNK [place] Insurance:SELF PAY [facility] Number: Effective Repository Date:2018-03-14 03/14/2018 MOLLY L Primary Insurance:UMR Lamberto [place] [id number] JOANN [id number] ThompsonDOB: [facility] MARIE ARGUELLES, Number: [id number] [facility] [address]Upd: [id number] Repository Date:5123-17-97LB BOX () [address] [place] [phone]: 03/14/2018 Secondary NOT GIVENUNK [place] Insurance:SELF PAY [facility] Number: Effective Repository Date:2018-03-14 02/07/2018 MOLLY L Primary Insurance:UMR Lamberto [place] [id number] JOANN [id number] ThompsonDOB: [facility] MARIE ARGUELLES, Number: [id number] [facility] [address]Zdu: [id number] Repository Date:0957-13-15FO BOX () [address] [place] [phone]: 02/07/2018 Secondary NOT GIVENUNK [place] Insurance:SELF PAY [facility] Number: Effective Repository Date:2018-02-07 01/27/2018 MOLLY Primary LAMBERTO Alyssa [facility] THOMPSONDOB: Insurance:UMRPolicy THOMPSONDOB: [facility] [id number] Number: [id number] Repository MARIE ARGUELLES, [id number] [address] [place] [address]Qnd: Date: [facility] [place] [address] () 01/14/2018 MOLLY Mihir Primary Insurance:UMR Lamberto [id number] JOANN [id number] ThompsonDOB: [facility] MARIE ARGUELLES, Number: [id number] [facility] [address]Sfr: [id number] Repository Date:3350-55-20TV BOX () [address] [place] [phone]: 01/14/2018 Secondary NOT GIVENUNK Heather Insurance:SELF PAY [facility] Number: Effective Repository Date:2018-01-14 12/16/2017 OMLLY L Primary Insurance:UMR Lamberto Heatherstephanie [id number] JOANN [id number] ThompsonDOB: [facility] MARIE ARGUELLES, Number: [id number] [facility] [address]Qwq: [id number] Repository Date:0621-58-87EK BOX () [address] [place] [phone]: 12/16/2017 Secondary NOT GIVENUNK [place] Insurance:SELF PAY [facility] Number: Effective Repository Date:2017-12-16 12/16/2017 MOLLY L Primary Insurance:UMR Lamberto Heatherstephanie [id number] JOANN [id number] ThompsonDOB: [facility] MARIE ARGUELLES, Number: [id number] [facility] [address]Qbt: [id number] Repository Date:9564-04-93JM BOX () [address] [place] [phone]: 12/16/2017 Secondary NOT GIVENUNK Heather Insurance:SELF PAY [facility] Number: Effective Repository Date:2017-12-16 11/18/2017 MOLLY L Primary Insurance:UMR Lamberto [place] [id number] JOANN [id number] ThompsonDOB: [facility] MARIE ARGUELLES, Number: [id number] [facility] [address]Iji: [id number] Repository Date:0985-89-33AA BOX () [address] [place] [phone]: 11/18/2017 Secondary NOT GIVENUNK [place] Insurance:SELF PAY [facility] Number: Effective Repository Date:2017-11-18 11/18/2017 MOLLY L Primary Insurance:UMR Lamberto Heather [id number] JOANN [id number] ThompsonDOB: [facility] MARIE ARGUELLES, Number: [id number] [facility] [address]Rjs: [id number] Repository Date:9327-55-59QE BOX () [address] [place] [id number]: 11/18/2017 Secondary NOT GIVENUNK Heather Insurance:SELF PAY [facility] Number: Effective Repository Date:2017-11-18 10/19/2017 Primary NOT [id number] [facility] Insurance:CorporatePo Alo Mohan Number: [facility] [id number]: ([phone]) Repository Date:Plan [phone] () Name:[address] [address]NF:
== END ==
LOC: LAB 12:47
PROVIDERS: Referring Provider Obstetrics & Gynecology; Visit Provider Obstetrics & Gynecology
DX: O99.119 Other diseases of the blood and blood-forming organs and certain disorders involving the immune mechanism complicating pregnancy, unspecified trimester (principal); D69.6 Thrombocytopenia, unspecified; Z3A.00 Weeks of gestation of pregnancy not specified
CPT/HCPCS: 36415; 85025

== ENCOUNTER → 2018-03-28 14:36 | Outpatient (CLI) | payer OTHER, SELFPAY ==
[2018-03-28 14:06] VITALS: BMI 21.4
[2018-03-28 15:05] LABS: Absolute Lymphocyte Count 1.48 X10^3/ul (0.83-4.51); Basophil# 0.01 X10^3/uL; Basophil% 0.1 % (0-1); Eosinophil# 0.01 X10^3/uL; Eosinophils% 0.1 % (0-5); Hematocrit 32.1 % (37-47); Hemoglobin 10.6 g/dl (12.0-15.0); Lymphocyte # 1.48 X10^3/ul (4.0); Lymphocyte % 21.3 % (19-41); Mean Corpuscular Volume 84.9 fL (81-99); Mean Platelet Vol. 11.2 fl (6.2-12.0); Monocyte# 0.42 X10^3/uL; Neutrophil # 5.01 X10^3/uL (2.7-7.7); Neutrophil % 72.2 % (47-70); Platelet Count 115 K/mm3 (150-450); RBC Distribution Width CV 12.6 % (11.6-14.6); Red Blood Count 3.78 M/mm3 (4.2-5.4)
[2018-03-28 15:08] LABS: POSITIVE COUNT NO; POSITIVE DIFFERENTIAL NO; POSITIVE MORPHOLOGY NO
[2018-03-28 15:17] LABS: Glucose Challenge Gest 1H 50g 114 mg/dL (70-140)
--- OUTSIDE RECORDS SUMMARY | 2018-06-30 07:23 | XMS RPT_ITS ---
:1995 Author Organization OHIP Support Name Relationship Address Phone ANCA LAMBERTO Unavailable [address] + [place] [address] UE Unavailable Unavailable Unavailable ANCA LAMBERTO Unavailable [address] + [place] [address] UE Unavailable Unavailable Unavailable LAMBERTO MARCH Unavailable [address] + [place] [address] UE Unavailable Unavailable Unavailable LAMBERTO MARCH Unavailable [address] + [place] [address] UE Unavailable Unavailable Unavailable LAMBERTO MARCH Unavailable [address] + [place] [address] UE Unavailable Unavailable Unavailable ANCA LAMBERTO Unavailable [address] + [place] [address] U Unavailable Unavailable Unavailable LAMBERTO MARCH Unavailable [address] + [place] [address] U Unavailable Unavailable Unavailable ANCA LAMBERTO Unavailable [address] + [place] [address] U Unavailable Unavailable Unavailable LAMBERTO MARCH Unavailable [address] + [place] [address] U Unavailable Unavailable Unavailable ANCA LAMBERTO Unavailable [address] + [place] [address] U Unavailable Unavailable Unavailable NOT EMPLOYED Unavailable Unavailable + [place] [address] ANCA LAMBERTO Unavailable [address] + [place] [address] Care Team Providers Name Role Phone Nazario Cameron MD Admitting Unavailable Nazario Cameron MD Attending Unavailable AUGUSTA WILSON Attending Unavailable ASHLEY DENIS Referring Unavailable NO PRIMARY CAREMD Primary Care Unavailable ASHLEY DENIS Attending Unavailable MARCANTHONY, ASHLEY E Referring Unavailable NO PRIMARY CARE, Primary Care Unavailable TAINA, KRAIG Attending Unavailable SELF, SELF Referring Unavailable TAIAN, KRAIG Attending Unavailable SELF, SELF Referring Unavailable LESLIE SOFIA Attending Unavailable TAINA, KRAIG Attending Unavailable SELF, SELF Referring Unavailable Marcanthony, Ashley Attending Unavailable Marcanthony, Ashley Attending Unavailable Marcanthony, Ashley Referring Unavailable Primay Care Physicia, No Primary Care Unavailable Sumner, Kaycee Attending Unavailable Sumner, Kaycee Attending Unavailable Noel, Kaycee Referring Unavailable Sumner, Kaycee Attending Unavailable Marcanthony, Ashley Attending Unavailable Primay Care Physicia, No Referring Unavailable Sumner, Kaycee Attending Unavailable Marcanthony, Ashley Attending Unavailable Marcanthony, Ashley Attending Unavailable Marcanthony, Ashley Attending Unavailable Marcanthony, Ashley Referring Unavailable Primay Care Physicia, No Primary Care Unavailable Marcanthony, Ashley Attending Unavailable PROBLEMS PROBLEMS DATE TYPE CONDITION / CODE ATTENDING STATUS SOURCE 04/21/2018 Unknown O23.591 - Infection Marcanthony, Active Heather of other part of [facility] genital tract in Hospital , first Repository trimester / O23.591(ICD-10) 04/21/2018 Unknown Z34.80 - Encounter Marcanthony, Active Heather for supervision of [facility] other normal Hospital , Repository unspecified trimester / Z34.80(ICD-10) 04/21/2018 Unknown O99.119 - Other Marcanthony, Active [place] diseases of the [facility] blood and [facility] blood-forming organs Repository and certain disorders involving the immune mechanism complicating , unspecified trimester / O99.119(ICD-10) 04/21/2018 Unknown O43.113 - Marcanthony, Active [place] Circumvallate [facility] placenta, third Hospital trimester / Repository O43.113(ICD-10) 04/21/2018 Unknown Z3A.30 - 30 weeks Marcanthony, Active [place] gestation of [facility] / Hospital Z3A.30(ICD-10) Repository 04/21/2018 Unknown Z97.5 - Presence of Marcanthony, Active Heather (intrauterine) [facility] contraceptive device Hospital / Z97.5(ICD-10) Repository 04/21/2018 Unknown O99.019 - Anemia Marcanthony, Active [place] complicating [facility] , Hospital unspecified Repository trimester / O99.019(ICD-10) 03/28/2018 Unknown Z34.90 - Encounter Jorge Alberto, Active [place] for supervision of [facility] normal , Hospital unspecified, Repository unspecified trimester / Z34.90(ICD-10) 03/28/2018 Unknown Z23 - Encounter for Jorge Alberto, Active Heather immunization / [facility] Z23(ICD-10) Hospital Repository 03/28/2018 Unknown Z3A.27 - 27 weeks Marcanthony, Active [place] gestation of [facility] / Hospital Z3A.27(ICD-10) Repository 03/14/2018 Unknown Z3A.25 - [facility] [place] gestation of [facility] / Hospital Z3A.25(ICD-10) Repository 02/07/2018 Unknown Z3A.20 - 20 weeks Marcanthony, Active [place] gestation of [facility] / Hospital Z3A.20(ICD-10) Repository 01/14/2018 Unknown Z3A.16 - [facility], Active [place] gestation of [facility] / Hospital Z3A.16(ICD-10) Repository 12/22/2017 Admitting Anesthesia of skin / SOFIA, LESLIE K [facility] Diagnosis R20.0(ICD-10) [place] Rep[place] 12/22/2017 Admitting state, TAINA, [facility] Diagnosis incidental / KRAIG [place] Z33.1(ICD-10) Repository 12/16/2017 Unknown O23.599 - Infection Sumner, Active Heather of other part of [facility] genital tract in Hospital , Repository unspecified trimester / O23.599(ICD-10) 12/16/2017 Unknown A59.01 - Trichomonal Noel, Active Heather vulvovaginitis / [facility] A59.01(ICD-10) Hospital Repository 11/19/2017 Unknown Z12.4 - Encounter Sumner, Active Heather for screening for [facility] malignant neoplasm [facility] cervix / Repository Z12.4(ICD-10) 11/18/2017 Unknown A64 - Unspecified Noel, Active Heather sexually transmitted [facility] disease / Hospital A64(ICD-10) Repository 11/18/2017 Unknown N89.8 - Other Sumner, Active Heather specified [facility] noninflammatory Hospital disorders of vagina Repository / N89.8(ICD-10) PROCEDURES PROCEDURES No Procedure Records FoundRESULTS RESULTS INSTRUMENT STERILIZER OFFICE VISIT Observed: 04/21/2018 Status: F Source: HEATHER REPORT 2:53 PM [facility] REPOSITORY [facility] [address] [place] [address] OFFICE VISIT Date of Service: 04/21/18 MR#: [id number] Acct: [id number] Name: MOLLY MARCH Rep #: [id number] : 1995 Provider: Ashley Denis MD Age/Sex: 23/F Location: [facility] Status: Signed Intake Vital Signs04/21/18 Height 5 ft 2 in 04/21/18 Weight: 132 lb 8 oz 04/21/18 Body Mass Index (BMI) 24.2 04/21/18 Blood Pressure 110/66 Intake Visit Reasons: 30 WEEK OB Public Message Service Supervisor Required: No Is patient in pain?: No Allergies Penicillins Allergy (Intermediate, Verified 04/21/18 14:34) rash Medications docosahexanoic acid 200 mg capsule mg PO 12/16/17 [History Confirmed 04/21/18] hydroxyzine pamoate 50 mg capsule 50 mg PO TID-QID PRN #30 cap 01/20/18 [Rx Confirmed 04/21/18] Last Menstral Period: 09/19/17 Zika: Zika virus [...] FOB t n h a n HPI 30 WEEK OB: Details: MOLLY MARCH is a 23 year old who presents for routine OB visit. OB Visit SALOMÓN Calculator Estimated Delivery Date 06/26/18 Based on LMP (certain) 09/19/17 Current WG 30w 4d Number 1 Expected Delivery Route/Plan Specific [...] Effac lucose ed Visit Notes Visit Date: 04/21/18 no vb lof good fm n oregular ctx larc signed plan iud pp Ashley Denis MD on 04/21/18 Visit Date: 03/28/18 no vb lof good fm no regular ctx cbc gct tdap today. Ashley Denis MD on 03/28/18 Visit Date: 03/14/18 no vb lof good fm oregualr ctx cbc drawn today Ashley Denis MD on 03/14/18 Visit Date: 02/07/18 no vb cramping Ashley Denis MD on 02/07/18 Visit Date: 01/14/18 no vb cramping. anatomy scheduled. boy on us Ashley Denis MD on 01/14/18 Visit Date: 12/16/17 Doing well. No longer with nausea. No VB, LOF. Declines genetic screen GWEN Blackman on 12/16/17 Visit Date: 11/18/[address] Denis CRL 2.3cm consistent with LMP- SALOMÓN 06/26/18 GWEN Blackman on 11/18/17 Diagnostics Diagnostics Labs Blood Type A POSITIVE 12/16/17 Antibody Screen NEGATIVE 12/16/17 Hct 32.1 % (37-47) L 03/28/18 Hgb 10.6 g/dl (12.0-15.0) L 03/28/18 Rubella IgG Antibody 112.9 IU/mL 12/16/17 RPR NONREACTIVE (NONREACTIVE) 12/16/17 Hep Bs Antigen Negative (Negative) 12/16/17 Chlam trachomat DNA PCR Negative (Negative) 11/18/17 N.gonorrhoeae DNA (PCR) Negative (Negative) 11/18/17 Glucose 1 Hr 50 gm 114 mg/dL (70-140) 03/28/18 Details: HIV: Urine Culture: Sequential Screen: NIPT Screen: Results [id number] Office Urine Glucose Negative Last Edit by Mirela Martinez on 04/21/18 14:39 Office Urine Protein Negative Last Edit by Mirela Martinez on 04/21/18 14:39 Assessment AND Plan Problems 1. Circumvallate placenta in third trimester O43.113 FU US resolved 2. Trichomonal vaginitis during in first trimester O23.591 11/18/17-treated; 12/16/17 negative 3. Supervision of other normal , antepartum Z34.80 PRR EDC:06/26/18 boy Prabhu Araujo. Spouse-Lamberto (Rick) 4. 30 weeks gestation of Z3A.30 genetic, NTD and carrier screening declined. MFM anatomy scan normal-placenta posterior, possibly circumvallate. 5. Benign gestational thrombocytopenia, antepartum O99.119 127. stable. monitor every 4-6 weeks 6. IUD contraception Z97.5 gilberto STRAUSS 7. Anemia during O99.019 Plan movement and labor precautions reviewed. ACOG trimester education reviewed and updated. see problem list details for updated plan management information and see below for orders placed at this visit. GA appropriate handout given. Orders Orders: Coding Level of Care Code OB Routine Diagnoses Circumvallate placenta in third trimester O43.113 Trichomonal vaginitis during in first trimester O23.591 Supervision of other normal , antepartum Z34.80 30 weeks gestation of Z3A.30 Weeks of gestation: 30 weeks Benign gestational thrombocytopenia, antepartum O99.119 IUD contraception Z97.5 Anemia during O99.019 04/21/18 7173 <Electronically signed by Ashley Denis MD> Date Ashley Denis MD Cosigner Signature: Date (if applicable) CC: CBC W/DIFF, AUTOMATED Collected: 03/28/2018 Status: F Source: HEATHER 2:44 PM [facility] REPOSITORY TYPE CODE TESTS RESULT OUT OF [...] Lymph 1.48 Performed By: #### L100.0100 #### [facility] [address] [place], [address] GLUCOSE CHALLENGE GEST Collected: 03/28/2018 Status: F Source: OMER 1H 50G 2:44 PM [facility] REPOSITORY Order Comment: Comments: blood draw at 2:55 Comments: blood draw at 2:55 TYPE CODE TESTS RESULT OUT OF RANGE REFERENCE UNITS LAB L501.0250 70-140 mg/dL Normal GLU GEST 114 50g 1H Performed By: #### L501.0250 #### [facility] [address] [place], [address] INSTRUMENT STERILIZER OFFICE VISIT Observed: 03/28/2018 Status: F Source: OMER REPORT 2:42 PM [facility] REPOSITORY [facility] [address] [place] [address] OFFICE VISIT Date of Service: 03/28/18 MR#: [id number] Acct: [id number] Name: MOLLY MARCH Rep #: [id number] : 1995 Provider: Ashley Denis MD Age/Sex: 23/F Location: [facility] Status: Signed with Addenda ADDENDUM by Megan Cohn on 03/28/18 at 1442 OFFICE PROCEDURES Office Procedure Documentation entered by Megan Cohn 03/28/18 14:42: Immunizations Boostrix Tdap Performing Provider: Ashley Denis MD Administered by: Megan Cohn on 03/28/18 14:40 Dose Route Admin Location Lot Number Expiration Date NDC Surveyor Mine 0.5 mL IM Left Arm (SQ) [id number] 02/04/20 [id number] [employer] VIS Given Date VIS Publication Date 03/28/18 06/05/14 Eligibility Eligibility Date 03/28/18 1442 <Electronically signed by Megan Cohn > Date Megan Cohn cc: * Signed Intake Vital Signs03/28/18 Body Mass Index (BMI) 21.4 03/28/18 Height 5 ft 2 in 03/28/18 Weight: 118 lb 4 oz 03/28/18 Body Mass Index (BMI) 21.6 03/28/18 Blood Pressure 118/78 Intake Visit Reasons: 27 weeks Public Message Service Supervisor Required: No Is patient in pain?: No [...] regular ctx cbc gct tdap today. Ashley Denis MD on 03/28/18 Visit Date: 03/14/18 no vb lof good fm oregualr ctx cbc drawn today Ashley Denis MD on 03/14/18 Visit Date: 02/07/18 no vb cramping Ashley Denis MD on 02/07/18 Visit Date: 01/14/18 no vb cramping. anatomy scheduled. boy on us Ashley Denis MD on 01/14/18 Visit Date: 12/16/17 Doing well. No longer with nausea. No VB, LOF. Declines genetic screen GWEN Blackman on 12/16/17 Visit Date: 11/18/[address] Denis CRL 2.3cm consistent with LMP- SALOMÓN 06/26/18 [...] other normal , antepartum Z34.80 PRR EDC:06/26/18 peyton Araujo. Spouse-Lamberto (Rick) 3. 27 weeks gestation of Z3A.27 genetic, NTD and carrier screening declined. MFM anatomy scan normal-placenta posterior, possibly circumvallate. 4. Benign gestational thrombocytopenia, antepartum O99.119 127. stable. monitor every 4-6 weeks 5. Circumvallate placenta in third trimester O43.113 follow up ultrasound with MFM 28-30 weeks Plan movement and labor precautions [...] trimester 03/28/18 1430 <Electronically signed by Ashley Denis MD> Date Ashley Denis MD [facility] Signature: Date (if applicable) CC: INSTRUMENT STERILIZER OFFICE VISIT Observed: 03/14/2018 Status: F Source: HEATHER REPORT 1:40 PM [facility] [address] [place], [place] [address] [place] [address] OFFICE VISIT Date of Service: 03/14/18 MR#: [id number] Acct: [id number] Name: MOLLY MARCH Rep #: [id number] : 1995 Provider: Ashley Denis MD Age/Sex: 23/F Location: [facility] Status: Signed Intake Vital Signs03/14/18 Body Mass Index (BMI) 21.4 03/14/18 Height 5 ft 2 in 03/14/18 Weight: 118 lb 03/14/18 Body Mass Index (BMI) 21.5 03/14/18 Blood Pressure 112/78 Intake Visit Reasons: 25 week ob Public Message Service Supervisor Required: No Is patient in pain?: No [...] fm oregualr ctx cbc drawn today Ashley Denis MD on 03/14/18 Visit Date: 02/07/18 no vb cramping Ashley Denis MD on 02/07/18 Visit Date: 01/14/18 no vb cramping. anatomy scheduled. boy on us Ashley Denis MD on 01/14/18 Visit Date: 12/16/17 Doing well. No longer with nausea. No VB, LOF. Declines genetic screen GWEN Blackman on 12/16/17 Visit Date: 11/18/[address] Denis CRL 2.3cm consistent with LMP- SALOMÓN 06/26/18 [...] trimester 03/14/18 1340 <Electronically signed by Ashley Denis MD> Date Ashley Denis MD Cosigner Signature: Date (if applicable) CC: CBC W/DIFF, AUTOMATED Collected: 03/14/2018 Status: F Source: HEATHER 12:50 PM [facility] REPOSITORY TYPE CODE TESTS RESULT OUT OF [...] Lymph 1.89 Performed By: #### L100.0100 #### [facility] [address] [place], [place], [address] INSTRUMENT STERILIZER OFFICE VISIT Observed: 02/07/2018 Status: F Source: OMER REPORT 3:33 PM [facility] REPOSITORY [facility] [address] [place] [address] OFFICE VISIT Date of Service: 02/07/18 MR#: [id number] Acct: [id number] Name: MOLLY MARCH Rep #: [id number] : 1995 Provider: Ashley Denis MD Age/Sex: 23/F Location: [facility] Status: Signed with Addenda ADDENDUM by Vera Russ on 02/07/18 at 1533 OFFICE PROCEDURES Office Procedure Documentation entered by Vera Russ 02/07/18 15:33: Office Meds Flucelvax Quad 2949-8950 (PF) Performing Provider: Ashley Denis MD Administered by: Vera Russ on 02/07/18 15:32 Dose Route Admin Location Lot Number Expiration Date NDC Surveyor Mine 60 mcg IM right arm [id number] 10/09/18 [id number] SEQIRUS 02/07/18 1533 <Electronically signed by Vera Russ > Date Vera Russ cc: * Signed Intake Vital Signs02/07/18 Height 5 ft 2 in 02/07/18 Weight: 117 lb 6 oz 02/07/18 Body Mass Index (BMI) 21.4 Intake Visit Reasons: 20 weeks Chief Complaint: est ob Public Message Service Supervisor Required: No Is patient in pain?: No [...] 8 6 oz (+ er 8w6 oz) Marcant 4d hony CR L 2.3cm consis tent wi th LMP- SALOMÓN Visit Notes Visit Date: 02/07/18 no vb cramping Ashley Denis MD on 02/07/18 Visit Date: 01/14/18 no vb cramping. anatomy scheduled. boy on us Ashley Denis MD on 01/14/18 Visit Date: 12/16/17 Doing well. No longer with nausea. No VB, LOF. Declines genetic screen GWEN Blackman on 12/16/17 Visit Date: 11/18/[address] Denis CRL 2.3cm consistent with LMP- SALOMÓN 06/26/18 [...] Z3A.20 genetic, NTD and carrier screening declined. MFM anatomy scan normal-placenta posterior, possibly circumvallate. 2. Benign gestational thrombocytopenia, antepartum O99.119 repeat cbc ordered. if still low may need heme consult 3. Trichomonal vaginitis during in first trimester O23.591 11/18/17-treated; 12/16/17 negative 4. Supervision of other normal , antepartum Z34.80 Grav 05/13 EDC:06/26/18 peyton Araujo. Spouse-Lamberto (Rick) Plan ACOG trimester education reviewed [...] Z34.80 02/07/18 1524 <Electronically signed by Ashley Denis MD> Date Ashley Denis MD Cosigner Signature: Date (if applicable) CC: INSTRUMENT STERILIZER OFFICE VISIT Observed: 01/14/2018 Status: F Source: HEATHER REPORT 3:54 PM [facility] [address] [place] [address] OFFICE VISIT Date of Service: 01/14/18 MR#: [id number] Acct: [id number] Name: MOLLY MARCH Rep #: [id number] : 1995 Provider: Ashley Denis MD Age/Sex: 22/F [facility] Status: Signed Intake Vital Signs01/14/18 Height 5 ft 2 in 01/14/18 Weight: 115 lb 2 oz 01/14/18 Body Mass Index (BMI) 21.0 01/14/18 Blood Pressure 102/58 L Intake Visit Reasons: est ob 16w4d Chief Complaint: est ob Public Message Service Supervisor Required: No Is patient in pain?: No [...] cramping. anatomy scheduled. boy on us Ashley Denis MD on 01/14/18 Visit Date: 12/16/17 Doing well. No longer with nausea. No VB, LOF. Declines genetic screen GWEN Blackman on 12/16/17 Visit Date: 11/18/[address] Denis CRL 2.3cm consistent with LMP- SALOMÓN 06/26/18 [...] of other normal , antepartum Z34.80 Grav 2/1 EDC:06/26/18 PC Adalynn. Spouse-Lamberto 4. 16 weeks gestation of Z3A.16 [...] weeks 01/14/18 1554 <Electronically signed by Ashley Denis MD> Date Ashley Denis MD Cosigner Signature: Date (if applicable) CC: Observed: 12/22/2017 Status: F Source: [employer] URINE CULTURE 7:43 PM [place] REPOS[place] SPECIMEN DESCRIPTION URINE CLEAN CATCH UA DIPSTICK LEUKOCYTE POSITIVE * Result Note: NITRITE NEGATIVE * CULTURE NO PATHOGENS ISOLATED * Result Note: Testing performed at [place] [address] * REPORT STATUS 12/24/2017 * Result Note: FINAL * Performed By: #### AURNC #### [place] [address] RAPID TOX SCREEN,URINE Collected: 12/22/2017 Status: F Source: [employer] 4:35 PM [place] REPOS[place] TYPE CODE [...] By: #### RTOX #### Testing performed at [address] [address] CBC Collected: 12/22/2017 Status: F Source: [facility] 4:34 PM [place] REPOS[place] TYPE CODE [...] X10 ABSOLUTE BAS 0.0 Performed By: #### ACBC, CMPF, MG, TSH2 #### Testing performed at [address] [address] CMP FASTING Collected: 12/22/2017 Status: F Source: [employer] 4:34 PM [place] REPOSITORY TYPE CODE [...] LAB GFRB ml/min/1.73 sq.m EST. GFR, >60 [place] GFRCOM GFR Information Average GFR for 20-29 years old = 116. Result Comment: Chronic Kidney disease, GFR = <60. Kidney failure, GFR = <15. The GFR estimate is not adjusted for extreme body surface area or acute process, nor has it been validated for women or ethnic groups other than and . Performed By: #### ACBC, CMPF, MG, TSH2 #### Testing performed at [address] [address] MAGNESIUM Collected: 12/22/2017 Status: F [facility] [place] TYPE CODE TESTS RESULT OUT OF REFERENCE UNITS RANGE LAB MG 1.6-2.3 MG/DL MAGNESIUM 1.9 Performed By: #### ACBC, CMPF, MG, TSH2 #### Testing performed at [address] [address] TSH Collected: 12/22/2017 Status: F Source: [facility] 4:34 PM [place] RE[place] TYPE CODE TESTS RESULT OUT OF RANGE REFERENCE UNITS LAB TSH2 0.45-5.33 uIU/ML TSH 1.190 Performed By: #### ACBC, CMPF, MG, TSH2 #### Testing performed at [address] [address] CBC W/DIFF, AUTOMATED Collected: 12/16/2017 Status: F Source: OMER 2:59 PM [facility] REPOSITORY TYPE CODE TESTS RESULT OUT OF [...] Lymph 1.68 Performed By: #### L100.0100 #### [facility] [address] [place], [place], [id number] TYPE AND SCREEN Collected: 12/16/2017 Status: F Source: OMER 2:59 PM [facility] REPOSITORY Order Comment: Reason for Type AND Screen/Red Cells: TYPE CODE TESTS RESULT OUT OF RANGE REFERENCE UNITS LAB B10.0800 A Normal BLOOD TYPE GEL POSITIVE LAB B100.4000 Normal Antibody NEGATIVE Screen Performed By: #### B101.7450 #### [facility] [address] [place] [address], [id number] #### L3100.0390 #### [facility] (refer to report for specific site) refer to report for address and phone number HEPATITIS B SURFACE Collected: 12/16/2017 Status: F Source: [facility] 2:59 PM [facility] REPOSITORY TYPE CODE TESTS RESULT OUT OF RANGE REFERENCE UNITS LAB L3100.0400 Negative Normal HB Negative SURF AG Result Comment: Performed at: [facility] [id number] Director Digital Advertising: Prabhu Black PhD, Phone: [phone] Performed By: #### B101.7450 #### [facility] [address] [place] [address], [id number] #### L3100.0390 #### [facility] (refer to report for specific site) refer to report for address and phone number RAPID PLASMIN REAGIN Collected: 12/16/2017 Status: F Source: OMER (RPR) 2:59 PM [facility] REPOSITORY TYPE CODE TESTS RESULT OUT OF REFERENCE UNITS RANGE LAB L700.5000 NONREACTIVE NONREACTIVE Normal RPR Performed By: #### L700.5000, L509.4000, L3890.6005 #### [facility] [address] [place] [address], [id number] RUBELLA IGG Collected: 12/16/2017 Status: F Source: OMER 2:59 PM [facility] REPOSITORY TYPE CODE TESTS RESULT OUT OF RANGE REFERENCE UNITS LAB L509.4000 IU/mL Normal Rubella IgG 112.9 Result Comment: Antibody results Interpretation of Immune Status < 5 IU/ml Presumed Non-immune 5 - < 10 IU/ml Equivocal > or = 10 IU/ml Presumed Immune Performed By: #### L700.5000, L509.4000, L3890.6005 #### [facility] [address] [place], [address] HIV - [facility] Collected: 12/16/2017 Status: F Source: OMER 2:59 PM [facility] REPOSITORY TYPE CODE TESTS RESULT OUT OF RANGE REFERENCE UNITS LAB L3890.6005 Nonreactive Normal HIV - [facility] Non-Reactive Performed By: #### L700.5000, L509.4000, L3890.6005 #### [facility] [address] [place], [address] INSTRUMENT STERILIZER OFFICE VISIT Observed: 12/16/2017 Status: F Source: OMER REPORT 2:58 PM [facility] REPOSITORY [facility] [address] [place] [address] OFFICE VISIT Date of Service: 12/16/17 MR#: [id number] Acct: [id number] Name: ANCAMOLLY L Rep #: [id number] : 1995 Provider: MEGAN Cohen Age/Sex: 22/F Location: [facility] Status: Signed Intake Vital Signs12/16/17 Height 5 ft 2 in 12/16/17 Weight: 109 lb 4 oz 12/16/17 Body Mass Index (BMI) 20.0 12/16/17 Blood Pressure 107/41 Intake Visit Reasons: est ob 12w4d Public Message Service Supervisor Required: No Is patient in pain?: No [...] Visit Date: 11/18/[address] Denis CRL 2.3cm consistent with LMP- SALOMÓN 06/26/18 [...] of other normal , antepartum Z34.80 Grav / EDC:06/26/18 SHABBIR Araujo. Spouse-Lamberto 2. Benign gestational thrombocytopenia, antepartum O99.119 [...] <Electronically signed by Kaycee HIDALGO> Date Kaycee HIDALGO Cosigner Signature: Date (if applicable) CC: CT/NG [facility] BY PCR Collected: 11/18/2017 Status: F Source: HEATHER 5:51 PM [facility] REPOSITORY Order Comment: CYTOLOGY INFORMATION: - CLINICAL INFORMATION: - DATE LMP/MENOPAUSE: LMP ANNUAL - COLLECTION VIAL: Thin Prep Vial - LIBRARIAN SPECIAL COLLECTIONS SOURCE: CERVICAL - COLLECTION TECHNIQUE: BRUSH/SPATULA TYPE CODE TESTS RESULT OUT OF RANGE REFERENCE UNITS LAB L8200.2100 Negative Normal Chlam Negative Trac PCR LAB L8200.2200 Negative Normal NG by Negative PCR Performed By: #### L8200.2000 #### [facility] [address] [place], [place], [address] #### L7400.0353 #### [facility] (refer to report for specific site) refer to report for address and phone number PAP I-G W/RFX Collected: 11/18/2017 Status: F Source: HEATHER HRHPV-APTIMA 5:51 PM [facility] REPOSITORY Order Comment: Specimen Comment: No. of [...] Normal PERFORM Comment Result Comment: Mely Starkey Product Communications Manager (ASCP) LAB L7400.2575 . Normal TEST METHOD [...] no HPV testing was performed. Performed at: [address] [place] [id number] Director Digital Advertising: Elizabeth Marcus MD, Phone: [phone] Performed By: #### L8200.2000 #### [facility] [address] [place], [place], [address] #### L7400.0353 #### [facility] (refer to report for specific site) refer to report for address and phone number Observed: 11/18/2017 Status: F Source: OMER CULTURE, URINE 5:51 PM [facility] REPOSITORY Urine Culture Below infection level. ORGANISM 1: Mixed Gram Positive Organisms Willcox Count <1000 Performed By: #### M100.0650 #### [facility] [address] [place], [place], [address] INSTRUMENT STERILIZER OFFICE VISIT Observed: 11/18/2017 Status: F Source: HEATHER REPORT 5:01 PM [facility] REPOSITORY [facility] [address] [place], [place] [address] OFFICE VISIT Date of Service: 11/18/17 MR#: [id number] Acct: [id number] Name: MOLLY MARCH Rep #: [id number] : 1995 Provider: MEGAN Cohen Age/Sex: 22/F Location: [facility] Status: Signed Intake Vital Signs11/18/17 Height 5 ft 2 in 11/18/17 Weight: 106 lb 6 oz 11/18/17 Body Mass Index (BMI) 19.4 11/18/17 Blood Pressure 121/64 Intake Visit Reasons: NOB - LMP 09/19 Public Message Service Supervisor Required: No Accompanied by: Allergies No Known [...] Visit Date: 11/18/[address] Denis CRL 2.3cm consistent with LMP- SALOMÓN 06/26/18 GWEN Blackman on 11/18/17 Menstrual History Last Menstral Period: [...] Pulmonary (e.g.,TB,Asthma), Seasonal allergies, Drug/latex allergies/reactions, Breast, Channel Manager surgery, Anesthetic complications, History of abnormal pap, [...] of other normal , antepartum Z34.80 Grav 2/ EDC:06/26/18 SHABBIR Araujo. Spouse-Lamberto 2. Benign gestational [...] <Electronically signed by Kaycee HIDALGO> Date Kaycee HIDALGO Cosigner Signature: Date (if applicable) CC: HEPATITIS B SURFACE Collected: 10/19/2017 Status: F Source: [facility] ABS 2:09 PM [facility] REPOSITORY TYPE CODE TESTS RESULT OUT OF REFERENCE UNITS RANGE LAB HBSABQTS mIU/mL Normal Hepatitis B < 5.0 Surf Ab, Qt Result Comment: REFERENCE VALUE Unvaccinated: <5.0 Vaccinated: >=12.0 Test Performed by: [facility] [address] [place] [address] LAB HBSABS Normal Hepatitis B Negative Surface Abs Result Comment: Patient is presumed to be not immune to infection with HBV. REFERENCE VALUE Unvaccinated: Negative Vaccinated: Positive Performed By: #### HBSABS #### Unless otherwise noted, all testing performed by [facility] [address] [place], [place] [address] CLIA: [id number] Market Analyst: Darius Dao M.D. ALLERGIES ALLERGIES DATE TYPE / CODE NAME / CODE REACTION SEVERITY SOURCE 04/21/2018 Drug Penicillins/F Rash MO [facility] [place] Allergy/4160 546868785(RXN Hospital 30290(SNOMED ORM) Repository CT) 01/14/2018 Drug No Known Unknown [facility] Allergy/4160 Allergies/F00 Hospital 28701(SNOMED 2179895(RXNOR Repository CT) M) ENCOUNTERS ENCOUNTERS ADMIT/DISCHARGE ACCOUNT NUMBER ADMITTING ENCOUNTER LOCATION SOURCE CLASS 04/21/2018/04/21/19 [id number] Ambulatory BMSBuilding: [place] 19 BMS.[facility] Repository 04/07/2018/04/07/20 [id number] Ambulatory Building:[address] Repository 03/28/2018 [id number] Ambulatory General acute hospital ding:PAVLAB Repository 03/28/2018/03/28/20 [id number] Ambulatory BMSBuilding: [place] 18 BMS.[facility] Repository 03/14/2018/03/14/20 [id number] Ambulatory BMSBuilding: [place] 18 BMS.[facility] Repository 03/14/2018 [id number] Ambulatory General acute hospital ding:LAB Repository 02/07/2018/02/08/20 [id number] Ambulatory BMSBuilding: [place] 18 BMS.[facility] Repository 01/27/2018 [id number] Ambulatory Building:[facility] Repository 01/18/2018 [id number] Ambulatory [address] [place] [address] ([place]) Repository 01/14/2018/01/15/20 [id number] Ambulatory BMSBuilding: [place] 18 BMS.[facility] Hospital Repository 12/22/2017/12/23/19 [id number] Emergency BuildinE [place] [address] DRoom: System ([place]) N109Chg: Repository E017 12/22/2017 [id number] Ambulatory Buildin [facility] ([place]) Repository 12/22/2017 [id number] Ambulatory Buildin [facility] ([place]) Repository 12/16/2017 [id number] Ambulatory General acute hospital ding:POLAB3 Repository 12/16/2017/12/17/19 [id number] Ambulatory BMSBuilding: [place] 18 BMS.[facility] Repository 11/18/2017 [id number] Ambulatory General acute hospital ding:LABSPEC Repository 11/18/2017/11/19/19 [id number] Ambulatory BMSBuilding: [place] 18 BMS.[facility] Repository 10/19/2017 [id number] Rakesh RODRIGUES, Ambulatory [facility] Repository PAYERS PAYERS ENCOUNTER GUARANTOR PAYER SUBSCRIBER SOURCE 04/21/2018 MOLLY Ash Primary Insurance:IVON [id number] [facility] [id number] ThompsonDOB: [facility] MARIE ARGUELLES, Number: [id number] Memorial Hospital [address]Yni: [id number] Repository Date:9316-90-24IY [address] () [place] [address]ZH: 04/21/2018 Secondary NOT GIVENUNK [place] Insurance:SELF PAY [facility] Number: Effective Repository Date:2018-04-21 04/07/2018 MOLLY Primary LAMBERTO Alyssa Colin [facility]'s THOMPSONDOB: Insurance:UMRPgeovani MARCHB: [facility] [id number] Number: [id number] Repository MARIE ARGUELLES, [id number] [address] [place] [address]Wrj: Date: [place] [address] () 03/28/2018 MOLLY L Primary Insurance:UMR Lamberto [id number] JOANN [id number] ThompsonDOB: Community MARIE ARGUELLES, Number: [id number] Memorial Hospital [address]Few: [id number] Repository Date:6135-92-11LE BOX () [address] [place] [phone]: 03/28/2018 Secondary NOT GIVENUNK [place] Insurance:SELF PAY [facility] Number: Effective Repository Date:2018-03-28 03/28/2018 MOLLY L Primary Insurance:UMR Lamberto [id number] JO[place] [id number] ThompsonDOB: [facility] MAIRE ARGUELLES, Number: [id number] Memorial Hospital [address]Arm: [id number] Repository Date:8743-64-49DM BOX () [address] [place] [id number]: 03/28/2018 Secondary NOT GIVENUNK [place] Insurance:SELF PAY [facility] Number: Effective Repository Date:2018-03-28 03/14/2018 MOLLY L Primary Insurance:UMR Lamberto [id number] JO[place] [id number] ThompsonDOB: [facility] MARIE ARGUELLES, Number: [id number] Memorial Hospital [address]Xqv: [id number] Repository Date:8300-94-31EU BOX () [address] [place] [address]JN: 03/14/2018 Secondary NOT GIVENUNK [place] Insurance:SELF PAY [facility] Number: Effective Repository Date:2018-03-14 03/14/2018 MOLLY L Primary Insurance:UMR Lamberto [id number] JO[place] [id number] ThompsonDOB: Community MARIE ARGUELLES, Number: [id number] Memorial Hospital [address]Cmh: [id number] Repository Date:2595-58-24IV BOX () [address] [place] [phone]: 03/14/2018 Secondary NOT GIVENUNK [place] Insurance:SELF PAY [facility] Number: Effective Repository Date:2018-03-14 02/07/2018 MOLLY L Primary Insurance:UMR Lamberto Heather [id number] [place] [id number] ThompsonDOB: [facility] MARIE ARGUELLES, Number: [id number] [place] [address]Cqg: [id number] Repository Date:7400-44-46BF BOX () [address] [place] [phone]: 02/07/2018 Secondary NOT GIVENUNK [place] Insurance:SELF PAY [facility] Number: Effective Repository Date:2018-02-07 01/27/2018 MOLLY Primary LAMBERTO Alyssa Colin [facility]'s THOMPSONDOB: Insurance:UMRPolicy THOMPSONDOB: [facility] [id number] Number: [id number] Repository MARIE ARGUELLES, [id number] [address] [place] [address]Qez: Date: [facility]KAEAST[facility] [place] [address] () 01/14/2018 MOLLY L Primary Insurance:UMR Lamberto [id number] [place] [id number] ThompsonDOB: [facility] MARIE ARGUELLES, Number: 1994BZOMimbres Memorial Hospital [address]Zvc: [id number] Repository Date:4982-77-50OX BOX () [address] [place] [address]XM: 01/14/2018 Secondary NOT GIVENUNK [place] Insurance:SELF PAY [facility] Number: Effective Repository Date:2018-01-14 12/16/2017 MOLLY L Primary Insurance:UMR [id number] JO[place] [id number] ThompsonDOB: [facility] MARIE ARGUELLES, Number: [id number] [place] [address]Vtq: [id number] Repository Date:3121-60-61SD BOX () [address] [place] [address]YV: 12/16/2017 Secondary NOT GIVENUNK [place] Insurance:SELF PAY [facility] Number: Effective Repository Date:2017-12-16 12/16/2017 MOLLY L Primary Insurance:UMR Lamberto [place] [id number] JOANN [id number] ThompsonDOB: [facility] MARIE ARGUELLES, Number: [id number] Memorial Hospital [address]Eym: [id number] Repository Date:4055-41-84CR BOX () [address] [place] [phone]: 12/16/2017 Secondary NOT GIVENUNK [place] Insurance:SELF PAY [facility] Number: Effective Repository Date:2017-12-16 11/18/2017 MOLLY L Primary Insurance:UMR Lamberto [place] [id number] JOANN [id number] ThompsonDOB: [facility] MARIE ARGUELLES, Number: [id number] Memorial Hospital [address]Azf: [id number] Repository Date:9046-89-83QG BOX () [address] [place] [address]JG: 11/18/2017 Secondary NOT GIVENUNK [place] Insurance:SELF PAY [facility] Number: Effective Repository Date:2017-11-18 11/18/2017 MOLLY L Primary Insurance:UMR Lamberto [place] [id number] JOANN [id number] ThompsonDOB: [facility] MARIE ARGUELLES, Number: [id number] Memorial Hospital [address]Sqw: [id number] Repository Date:4076-77-84GU BOX () [address] [place] [phone]: 11/18/2017 Secondary NOT GIVENUNK [place] Insurance:SELF PAY [facility] Number: Effective Repository Date:2017-11-18 10/19/2017 Primary NOT [id number] [facility] Insurance:CorporatePo AnnieFair[facility] Medical Centerharis Number: [facility] [id number]: (419) Repository Date:Plan [phone] () Name:[id number] [facility] Hospitalmaryanne [place], [place] [address]UW:
== END ==
LOC: PAVLAB 14:40
PROVIDERS: Referring Provider Obstetrics & Gynecology; Visit Provider Obstetrics & Gynecology
DX: Z34.90 Encounter for supervision of normal pregnancy, unspecified, unspecified trimester (principal)
CPT/HCPCS: 36415; 82950; 85025

== ENCOUNTER → 2018-06-03 11:23 | Outpatient (CLI) | payer OTHER, SELFPAY ==
[2018-05-20 13:59] VITALS: BMI 21.4
--- NOTE | 2018-06-03 11:26 | US_ITS ---
STUDY: SECOND AND THIRD TRIMESTER OBSTETRICAL ULTRASOUND - LIMITED REASON FOR EXAM: Female, 23 years old. Evaluate growth. LMP: Unknown. PRIOR ULTRASOUND: None. TECHNIQUE: Transabdominal TECHNICAL QUALITY: Adequate. FINDINGS: There is a single intrauterine fetus. The fetus is in a cephalic presentation. There is demonstrated cardiac activity with a heart rate of 133 bpm. There is a normal amniotic fluid volume. The largest amniotic fluid pocket measures 2.4 cm. The amniotic fluid index (KALE) is 10.5 cm. The placenta is posterior in location and is not low lying. There are Grade 2 placental changes. The cervix is not visualized. BIOMETRY: BPD: 91 mm: 36 weeks, 5 days HC: 324 mm: 36 weeks, 5 days AC: 317 mm: 35 weeks, 5 days FL: 71 mm: 36 weeks, 5 days Age by LMP: 36 weeks, 5 days. SALOMÓN by LMP: 06/26/2018 age by current US: 36 weeks, 4 days. SALOMÓN by current US: 06/27/2018. Estimated weight: 2845 grams, +/- 415 grams, 37 percentile. US/OB Limited With Biometrics IMPRESSION: Single live intrauterine fetus in cephalic presentation with an estimated gestational age of 36 weeks and 4 days. Electronically Signed: Dave Garcia MD at 11:53 EST Tel , Service support ,
== END ==
LOC: US 11:24
PROVIDERS: Referring Provider Obstetrics & Gynecology; Visit Provider Obstetrics & Gynecology
DX: Z34.80 Encounter for supervision of other normal pregnancy, unspecified trimester (principal)
CPT/HCPCS: 76816

== ENCOUNTER → 2018-06-08 13:42 | Outpatient (CLI) | payer OTHER, SELFPAY ==
[2018-06-08 10:36] VITALS: BMI 21.4
[2018-06-08 18:27] LABS: Chlamydia Trachomatis by PCR Negative (Negative); Neisserai gonorrhoeae by PCR Negative (Negative); Probe Check PASS; Sample Adequacy Control PASS; Specimen Processing Control PASS
== END ==
LOC: LABSPEC 13:44
PROVIDERS: Referring Provider Obstetrics & Gynecology; Visit Provider Obstetrics & Gynecology
DX: N89.8 Other specified noninflammatory disorders of vagina (principal)
CPT/HCPCS: 87081; 87491; 87591

== ENCOUNTER 2018-06-08 19:15 | Outpatient (CLI) | payer OTHER, SELFPAY ==
[2018-06-08 10:36] VITALS: BMI 21.4
[2018-06-08 19:40] VITALS: BMI 25.3
--- NOTE | 2018-06-10 00:18 | OB.TRI.NOTE ---
- Problem List (1) False labor Status: Acute History of Present Illness Date of Service: 06/08/18 Reason For Visit: R/O LABOR History of Present Illness: co ctx Allergies Penicillins Allergy (Intermediate, Verified 06/08/18 19:44) rash hives - Pertinent Past Medical History Medical History: Past Medical History (Last Reviewed 06/08/18 @ 10:34 by Anamaria Gipson) Gestational thrombocytopenia Surgical History: Past Surgical History (Last Reviewed 06/08/18 @ 10:34 by Anamaria Gipson) History of placement of ear tubes NST - FHR Rate Baby A Baseline: 130 Variability:: Moderate Accelerations:: 15 x 15 Decelerations:: None NST Reactive:: Yes FHR Category:: Category I Uterine Activity:: q4-6 Impression/Plan no cervical change, reactive nst dc home labor precautions
== END 2018-06-08 22:00 | disposition home or self-care (01) ==
LOC: WPOUT 19:22 → OBT 19:22
PROVIDERS: Referring Provider Obstetrics & Gynecology; Visit Provider Obstetrics & Gynecology
DX: Z34.90 Encounter for supervision of normal pregnancy, unspecified, unspecified trimester (principal)
CPT/HCPCS: 59025; 59050; 99218; G0378

== ENCOUNTER 2018-06-10 03:20 | Inpatient (IN) | payer OTHER, SELFPAY ==
[2018-06-10 00:17] VITALS: BMI 25.4
[2018-06-10] MEDS: Lactated Ringers 1,000 ML 50 ML IV ×2 (03:40→04:45)
[2018-06-10 04:04] LABS: Hematocrit 31.2 % (37-47); Hemoglobin 9.7 g/dl (12.0-15.0); Mean Corp Hgb Conc 31.1 g/gl (32-36); Mean Corpuscular Hgb 24.7 pg (27.0-32.0); Mean Corpuscular Volume 79.6 fL (81-99); Mean Platelet Vol. 12.1 fl (6.2-12.0); Platelet Count 122 K/mm3 (150-450); RBC Distribution Width CV 14.2 % (11.6-14.6); RBC Distribution Width SD 39.7 fl (35.1-43.9); Red Blood Count 3.92 M/mm3 (4.2-5.4); Scan Indicated on CBC? Y/N NO
[2018-06-10] MEDS: fentaNYL-bupivacaine (epidural) 100 ML BAG EPIDURAL (04:53)
[2018-06-10] MEDS: Oxytocin 30 units/NS 500 ml 30 UNITS/500 ML IV.SOLN 334 UNITS IV (06:25)
[2018-06-10] MEDS: Oxytocin 30 units/NS 500 ml 30 UNITS/500 ML IV.SOLN 167 UNITS IV (07:00)
--- NOTE | 2018-06-10 07:03 | PCM.HP.OB ---
- Problem List (1) IUD contraception Status: Acute Comment: gilberto STRAUSS (2) Anemia during Status: Acute (3) Circumvallate placenta Status: Acute Qualifiers: Comment: FU US resolved (4) Status: Acute Qualifiers: Comment: genetic, NTD and carrier screening declined. MFM anatomy scan normal-placenta posterior, possibly circumvallate. (5) Trichomonal vaginitis during Status: Acute Qualifiers: Comment: 11/18/17-treated; 12/16/17 negative (6) Gestational thrombocytopenia Status: Acute Qualifiers: Comment: 127. stable. monitor every 4-6 weeks (7) Supervision of other normal , antepartum Status: Acute Comment: PRR EDC:06/26/18 boy Prabhu Araujo. Spouse-Lamberto (Rick) History Date of Admission: 06/10/18 Final SALOMÓN: 06/26/18 Gestational age: 37 Weeks and 5 Days History of this : This is a 23 year-old, at 37 weeks gestational age presents IAL. she denies any vb lof admits good fm. Medical History: Medical History (Last Reviewed 06/08/18 @ 10:34 by Anamaria Gipson) Gestational thrombocytopenia O99.119, D69.6 Surgical History: Surgical History (Last Reviewed 06/08/18 @ 10:34 by Anamaria Gipson) History of placement of ear tubes Z96.22 Allergies Penicillins Allergy (Intermediate, Verified 06/10/18 00:18) rash hives Home Medications: Home Medications docosahexanoic acid 200 mg capsule 200 mg PO DAILY 12/16/17 Smoking Status: Never smoker Alcohol: None Number of Fetus(es): 1 Heart Tracin moderate variability reactive no decelerations category I tracing [place]: regular History Past Pregnancies: Past Pregnancies previous term uncomplicated Labs: Mom's Labs & Results 06/10/18 06/10/18 03:40 03:40 WBC 8.0 RBC 3.92 L Hgb 9.7 L Hct 31.2 L MCV 79.6 L MCH 24.7 L MCHC 31.1 L RDW 14.2 RDW Differential 39.7 Plt Count 122 L MPV 12.1 H Blood Type A POSITIVE Antibody Screen NEGATIVE Course Did the patient receive Yes care? Labs Blood Type: A RH: POSITIVE RPR/VDRL/Syphilis Nonreactive Rubella status Immune HbSAg Negative Date Done: 12/16/17 Chlamydia Negative Gonorrhea Negative HIV/AIDS Non-Reactive Other Lab Procedures/Results/ GBS still pending-no antibiotics ordered per Comments: luis miguel Current Obstetrical History Gestational Diabetes No Incompetent Cervix No Infertility No IUGR No Macrosomia No Hypertension/Pre-eclampsia No Placenta Previa/Abruption No PTL/PROM No Uterine anomaly No Oligohydramnios No Polyhydramnios No Multiple gestation No Past Medical History Asthma No Diabetes No Hypertension No Heart disease No Mitral valve prolapse No Neurologic/Seizure disorder/ No Migraines Kidney disease No Liver disease No Varicosities No Clotting disorders/Hx of DVT No Thyroid Dysfunction No Other medical diseases No Psychiatric disorders No Major trauma No Abnormal PAP smear No Sleep apnea No Mammogram in the last 2 years No Social History Marital Status: Alleged father Lamberto Hx Smoking No Smoking Status Never smoker How long have you used n/a substances (years)? Expected Delivery Method: Spontaneous Vaginal Review of Systems Constitutional: Denies: Fever, Malaise Eyes: Denies: Blurred vision, Vision Change HEENT: Denies: Head Aches, Visual Changes Cardiovascular: Denies: Chest Pain, Palpitations Respiratory: Denies: Cough, Shortness of Breath, Wheezing Gastrointestinal: Denies: Abdominal Pain, Diarrhea, Nausea, Vomiting Genitourinary: Denies: Dysuria, Hematuria Musculoskeletal: Denies: Joint Pain, Muscle pain Skin: Denies: Lesions, Rash Neurological: Denies: Blurred vision, Focal weakness, Headaches Psychiatric: Denies: Anxiety, Depression Endocrine: Denies: Heat/ Cold Intolerance Hematologic/ Lymphatic: Denies: Easy Bruising, Easy Bleeding Physical Exam General: Alert, Cooperative, No apparent distress HEENT: Atraumatic, Normocephalic. Negative for: Thyromegaly, Lymphadenopathy Cardiovascular: Regular rate Lungs: Normal air movement Abdomen: Soft, Non Tender, Gravid Neurological: Deep Tendon Reflexes 2+/4 and Symmetrical, Neuro grossly intact. 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 Negative for: Vulvar lesions Estimated gestational size: Appropriate for gestational size Presentation: Cephalic Assessment/Plan All Active Problems (Last Reviewed 06/08/18 @ 10:34 by Anamaria Gipson) False labor (Acute) IUD contraception (Acute) Anemia during (Acute) Circumvallate placenta (Acute) (Acute) Trichomonal vaginitis during (Acute) Gestational thrombocytopenia (Acute) Supervision of other normal , antepartum (Acute) screening encounter (Resolved) This is a 23 year-old, , at 37 weeks gestational age presents IAL Patient presents IAL, plan expectant management for , pitocin/AROM PRN if needed. Pain management: plans epidural. GBS neg. Management of any complications: none [facility] and made any clinically relevant updates.
--- NOTE | 2018-06-10 07:06 | HP.PCM_ITS ---
- Problem List (1) IUD contraception Status: Acute Comment: gilberto STRAUSS (2) Anemia during Status: Acute (3) Circumvallate placenta Status: Acute Qualifiers: Comment: FU US resolved (4) Status: Acute Qualifiers: Comment: genetic, NTD and carrier screening declined. MFM anatomy scan normal- placenta posterior, possibly circumvallate. (5) Trichomonal vaginitis during Status: Acute Qualifiers: Comment: 11/18/17-treated; 12/16/17 negative (6) Gestational thrombocytopenia Status: Acute Qualifiers: Comment: 127. stable. monitor every 4-6 weeks (7) Supervision of other normal , antepartum Status: Acute Comment: PRR EDC:06/26/18 boy Prabhu Araujo. Spouse-Lamberto (Rick) History Date of Admission: 06/10/18 Final SALOMÓN: 06/26/18 Gestational age: 37 Weeks and 5 Days History of this : This is a 23 year-old, at 37 weeks gestational age presents IAL. she denies any vb lof admits good fm. Medical History: Medical History (Last Reviewed 06/08/18 @ 10:34 by Anamaria Gipson) Gestational thrombocytopenia O99.119, D69.6 Surgical History: Surgical History (Last Reviewed 06/08/18 @ 10:34 by Anamaria Gipson) History of placement of ear tubes Z96.22 Allergies Penicillins Allergy (Intermediate, Verified 06/10/18 00:18) rash hives Home Medications: Home Medications docosahexanoic acid 200 mg capsule 200 mg PO DAILY 12/16/17 Smoking Status: Never smoker Alcohol: None Number of Fetus(es): 1 Heart Tracin moderate variability reactive no decelerations category I tracing [place]: regular History Past Pregnancies: Past Pregnancies previous term uncomplicated Labs: Mom's Labs & Results 06/10/18 06/10/18 03:40 03:40 WBC 8.0 RBC 3.92 L Hgb 9.7 L Hct 31.2 L MCV 79.6 L MCH 24.7 L MCHC 31.1 L RDW 14.2 RDW Differential 39.7 Plt Count 122 L MPV 12.1 H Blood Type A POSITIVE Antibody Screen NEGATIVE Course Did the patient receive Yes care? Labs Blood Type: A RH: POSITIVE RPR/VDRL/Syphilis Nonreactive Rubella status Immune HbSAg Negative Date Done: 12/16/17 Chlamydia Negative Gonorrhea Negative HIV/AIDS Non-Reactive Other Lab Procedures/Results/ GBS still pending-no antibiotics ordered per Comments: luis miguel Current Obstetrical History Gestational Diabetes No Incompetent Cervix No Infertility No IUGR No Macrosomia No Hypertension/Pre-eclampsia No Placenta Previa/Abruption No PTL/PROM No Uterine anomaly No Oligohydramnios No Polyhydramnios No Multiple gestation No Past Medical History Asthma No Diabetes No Hypertension No Heart disease No Mitral valve prolapse No Neurologic/Seizure disorder/ No Migraines Kidney disease No Liver disease No Varicosities No Clotting disorders/Hx of DVT No Thyroid Dysfunction No Other medical diseases No Psychiatric disorders No Major trauma No Abnormal PAP smear No Sleep apnea No Mammogram in the last 2 years No Social History Marital Status: Alleged father Lamberto Hx Smoking No Smoking Status Never smoker How long have you used n/a substances (years)? Expected Infant Delivery Method: Spontaneous Vaginal Review of Systems Constitutional: Denies: Fever, Malaise Eyes: Denies: Blurred vision, Vision Change HEENT: Denies: Head Aches, Visual Changes Cardiovascular: Denies: Chest Pain, Palpitations Respiratory: Denies: Cough, Shortness of Breath, Wheezing Gastrointestinal: Denies: Abdominal Pain, Diarrhea, Nausea, Vomiting Genitourinary: Denies: Dysuria, Hematuria Musculoskeletal: Denies: Joint Pain, Muscle pain Skin: Denies: Lesions, Rash Neurological: Denies: Blurred vision, Focal weakness, Headaches Psychiatric: Denies: Anxiety, Depression Endocrine: Denies: Heat/ Cold Intolerance Hematologic/ Lymphatic: Denies: Easy Bruising, Easy Bleeding Physical Exam General: Alert, Cooperative, No apparent distress HEENT: Atraumatic, Normocephalic. Negative for: Thyromegaly, Lymphadenopathy Cardiovascular: Regular rate Lungs: Normal air movement Abdomen: Soft, Non Tender, Gravid Neurological: Deep Tendon Reflexes 2+/4 and Symmetrical, Neuro grossly intact. Negative for: Clonus MACHINE SET UP: Normal external genitalia. Negative for: Vulvar lesions Estimated gestational size: Appropriate for gestational size Presentation: Cephalic Assessment/Plan All Active Problems (Last Reviewed 06/08/18 @ 10:34 by Anamaria Gipson) False labor (Acute) IUD contraception (Acute) Anemia during (Acute) Circumvallate placenta (Acute) (Acute) Trichomonal vaginitis during (Acute) Gestational thrombocytopenia (Acute) Supervision of other normal , antepartum (Acute) screening encounter (Resolved) This is a 23 year-old, , at 37 weeks gestational age presents IAL Patient presents IAL, plan expectant management for , pitocin/AROM PRN if needed. Pain management: plans epidural. GBS neg. Management of any complications: none [facility] and made any clinically relevant updates.
[2018-06-10] MEDS: 0.9% Saline Lock 10 ML Syringe IV (08:22)
[2018-06-10 11:36] VITALS: BP 123/67; PULSE 101; RESP 20; TEMP 36.4; O2SAT 98
[2018-06-10 16:21] VITALS: BP 129/81; PULSE 91; RESP 16; TEMP 37; O2SAT 96
[2018-06-10 20:10] VITALS: BP 126/88; PULSE 95; RESP 16; TEMP 37.2; O2SAT 96
[2018-06-10 23:40] VITALS: BP 120/70; PULSE 94; RESP 16; TEMP 37.3; O2SAT 97
[2018-06-11] MEDS: Acetaminophen 500 MG Tablet 1000 MG PO ×2 (02:12→13:48)
[2018-06-11 04:00] VITALS: BP 113/61; PULSE 88; RESP 16; TEMP 36.4; O2SAT 96
--- NOTE | 2018-06-11 06:37 | OP.PCM_ITS ---
- Problem List (1) IUD contraception Status: Acute Comment: gilberto STRAUSS (2) Anemia during Status: Acute (3) Circumvallate placenta Status: Acute Qualifiers: Comment: FU US resolved (4) Status: Acute Qualifiers: Comment: genetic, NTD and carrier screening declined. MFM anatomy scan normal- placenta posterior, possibly circumvallate. (5) Trichomonal vaginitis during Status: Acute Qualifiers: Comment: 11/18/17-treated; 12/16/17 negative (6) Gestational thrombocytopenia Status: Acute Qualifiers: Comment: 127. stable. monitor every 4-6 weeks (7) Supervision of other normal , antepartum Status: Acute Comment: PRR EDC:06/26/18 boy Prabhu Araujo. Spouse-Lamberto (Rick) Vaginal Delivery Maternal Presentation: Active Labor Presents in active labor Amniotic Fluid Description: Clear Final SALOMÓN: 06/26/18 Gestational age: 37 Weeks and 6 Days Date of Procedure: 06/11/18 Pre-Operative Diagnosis: In active labor Post-Operative Diagnosis: Same Surgery/ Procedure Performed: Spontaneous Vaginal Delivery Type of Anesthesia: Epidural Description of Procedure: Patient began pushing and delivered the head in the JHON presentation. The head was delivered atraumatically. The anterior and posterior shoulders delivered without complication followed by the rest of the infant and the infant was placed on the maternal abdomen. Delayed cord clamping was employed for approximately 60 seconds. Cord was clamped and cut and gentle traction was applied to the cord and the placenta delivered spontaneously immediately following it was noted to be intact with three-vessel cord. The perineum and vagina were inspected and noted to have no laceration. EBL was 100 cc. Patient and infant tolerated delivery well. Presentation: JHON Placental Delivery Description: Spontaneous Placenta Disposition: [facility] Cord Entanglement: None Estimated Blood Loss: 100 Episiotomy Description: None Laceration: None Medications given after delivery: IV Pitocin Complications: None
--- NOTE | 2018-06-11 06:37 | PCM.PN.OB ---
Subjective: doing well no complaints pain controlled no CP SOB N V ambulating well tolerating po lochia moderate, going well - Physical Exam General: Alert, Oriented x3 Vital Signs Temp Pulse Resp BP Pulse Ox 97.5 F L 88 16 113/61 96 06/11/18 04:00 06/11/18 04:00 06/11/18 04:00 06/11/18 04:00 06/11/18 04:00 Oxygen Delivery Method Room Air Weight: 139 lb 1.787 oz Body Mass Index (BMI) 25.4 Intake and Output for Last 24 Hours 06/09/18 06/10/18 06/11/18 23:59 23:59 23:59 Intake Total 1000 / 1000 Output Total 600 / 600 Balance 400 / 400 Medical Necessity - Tobacco Use Smoking Status: Never smoker Assessment/Plan All Active Problems (Last Reviewed 06/08/18 @ 10:34 by Anamaria Gipson) False labor (Acute) IUD contraception (Acute) Anemia during (Acute) Circumvallate placenta (Acute) (Acute) Trichomonal vaginitis during (Acute) Gestational thrombocytopenia (Acute) Supervision of other normal , antepartum (Acute) screening encounter (Resolved) s/p PPD # 1 1. routine post delivery care 2. breast feeding- support given 3. rh positive 4. rubella immune
--- NOTE | 2018-06-11 06:59 | DCINST_ITS ---
Discharge Diet: No Restrictions Discharge Activity: Return to Normal Activity, May not drive while taking narcotic pain medications., May Shower May resume sexual activity in: 4-6 weeks Call your doctor if your incision/area has: Continuous Slow Oozing, Sudden Increased Bleeding, Increased Pain/ Swelling, Increased Redness, Foul Smelling Discharge Additional Instructions: If you experience any of the following, contact your healthcare provider. * Bleeding that soaks a pad every hour for 2 hours * Fever 100.4 or higher * Unrelieved incision or abdominal pain * Swelling, redness, discharge or bleeding from your incision or episiotomy site * Your incision begins to separate * Problems urinating (including inability to urinate or burning while urinating). * Visual changes * Severe headache * Flu-like symptoms * Pain or redness in one of both of your breasts * Pain, warmth, tenderness or swelling in your legs, especially the calf area * Frequent nausea and vomiting * Symptoms of depression or anxiety If you experience any of the following, call 911 or go to the nearest Emergency Room. * Chest pain * Problems breathing * Seizure activity * Partial or complete paralysis of a body part, slurred speech, weakness or drooping of the face, or a sudden inability to walk or hold your balance Allergies/Adverse Reactions: Allergies Penicillins Allergy (Intermediate, Verified 06/10/18 00:18) rash hives Medications to take at Discharge docosahexanoic acid 200 mg capsule 200 mg PO DAILY 12/16/17 Please Follow Up With: Ashley Azul MD - [phone] When: Call to make an appointment with your doctor in 6 weeks. If you had elevated Blood pressure or 4th degree laceration you will need to be seen in 2 weeks. Primary Care Physician: Care Physician,No Primary [Primary Care Provider] - Test Results: Test results from this visit will be discussed in further detail at your follow- up appointment, if applicable.
--- NOTE | 2018-06-11 06:59 | PCM.DCVAG ---
Discharge Diet: No Restrictions Discharge Activity: Return to Normal Activity, May not drive while taking narcotic pain medications., May Shower May resume sexual activity in: 4-6 weeks Call your doctor if your incision/area has: Continuous Slow Oozing, Sudden Increased Bleeding, Increased Pain/ Swelling, Increased Redness, Foul Smelling Discharge Additional Instructions: If you experience any of the following, contact your healthcare provider. Bleeding that soaks a pad every hour for 2 hours Fever 100.4 or higher Unrelieved incision or abdominal pain Swelling, redness, discharge or bleeding from your incision or episiotomy site Your incision begins to separate Problems urinating (including inability to urinate or burning while urinating). Visual changes Severe headache Flu-like symptoms Pain or redness in one of both of your breasts Pain, warmth, tenderness or swelling in your legs, especially the calf area Frequent nausea and vomiting Symptoms of depression or anxiety If you experience any of the following, call 911 or go to the nearest Emergency Room. Chest pain Problems breathing Seizure activity Partial or complete paralysis of a body part, slurred speech, weakness or drooping of the face, or a sudden inability to walk or hold your balance Allergies/Adverse Reactions: Allergies Penicillins Allergy (Intermediate, Verified 06/10/18 00:18) rash hives Medications to take at Discharge docosahexanoic acid 200 mg capsule 200 mg PO DAILY 12/16/17 Please Follow Up With: Ashley Azul MD - [phone] When: Call to make an appointment with your doctor in 6 weeks. If you had elevated Blood pressure or 4th degree laceration you will need to be seen in 2 weeks. Primary Care Physician: Care Physician,No Primary [Primary Care Provider] - Test Results: Test results from this visit will be discussed in further detail at your follow-up appointment, if applicable.
[2018-06-11 08:00] VITALS: BP 111/69; PULSE 81; RESP 16; TEMP 36.6; O2SAT 99
[2018-06-11 14:20] VITALS: BP 111/74; PULSE 78; RESP 17; TEMP 36.7; O2SAT 99
== END 2018-06-11 14:20 | disposition home or self-care (01) | DRG 807 ==
LOC: WPOUT 03:21
PROVIDERS: Admitting Provider Obstetrics & Gynecology; Referring Provider Obstetrics & Gynecology; Visit Provider Obstetrics & Gynecology
DX: O99.12 Other diseases of the blood and blood-forming organs and certain disorders involving the immune mechanism complicating childbirth (principal); Z37.0 Single live birth; D69.6 Thrombocytopenia, unspecified; Z3A.37 37 weeks gestation of pregnancy; O99.02 Anemia complicating childbirth; D64.9 Anemia, unspecified; O43.113 Circumvallate placenta, third trimester
CPT/HCPCS: 59025; 59050; 85027; 86850; 86900; 99218; J7120; A4216; G0378